=== PATIENT | female | born 1950 | race Caucasian/White ===

== ENCOUNTER → 2016-11-26 09:14 | Day surgery (SDC) | payer OTHER ==
[~2016-11-26 09:14] MED LIST: Acetaminophen TAB* 325 MG PO PRN; Buffered Lidocaine 1% SYRIN* 3 ML/SYR SYRINGE INTRADERM ONE; Cyclopentolate 1% OPTH.SOL* 2 ML BTL ONE; Flurbiprofen 0.03% OPTH.SOL* 2.5 ML BTL ONE; Lidocaine 1% MPF* 2 ML VIAL ONE; Midazolam* 1 MG/ML 2 ML VIAL (2 MG) ONE; Neomycin/Polymy/Dex OPHTH.OIN* 3.5 GM ONE; Phenylephrine 2.5% OPTH.SOL* 2 ML BTL ONE; Povidone Iodine 5% OPTH* 30 ML BTL ONE; Tetracaine 0.5% OPTH.SOL 4 ML* 1 DROP BTL ONE; acetaZOLAMIDE TAB* 250 MG ONE; fentaNYL* 50 MCG/ML 2 ML VIAL (100 MCG VIAL) ONE
[2016-11-26 11:53] VITALS: BP 139/74
--- NOTE | 2016-11-27 06:15 | OP ---
DATE OF OPERATION: 11/26/16 - [facility] DATE OF : 52 SURGEON: Jeramy Olsen MD ANESTHESIOLOGIST: Lokesh Velasco MD ANESTHESIA: Monitored anesthesia care. PRE-OP DIAGNOSIS: Cataract of the right eye. POST-OP DIAGNOSIS: Cataract of the right eye. OPERATIVE PROCEDURE: Cataract extraction of the right eye. IMPLANTS: SN60WF 22.0 diopter lens to the right eye. COMPLICATIONS: None. DESCRIPTION OF PROCEDURE: The patient was given phenylephrine 2.5% and cyclopentolate 1% eyedrops to the operative eye in the preoperative area. The patient was brought to the operating room, where a time-out was taken to identify the correct patient, site, and side of surgery. The patient's right eye was prepped and draped in the usual sterile fashion with 5% Betadine. A second time- out was taken to verify the correct patient, site, and side of surgery, and correct lens selection. A lid speculum was placed to the right eye. A 1-mm paracentesis blade was used to make a clear corneal incision in the superotemporal position. Preservative-free 1% lidocaine was injected into the anterior chamber. DuoVisc was then injected into the anterior chamber. A 2.75-mm keratome blade was used to make a triplanar incision at the inferotemporal position. A cystotome was used to initiate a capsulorrhexis, which was completed with Utrata forceps in a continuous and curvilinear manner. Hydrodissection of the lens was then performed with BSS on a cannula. The lens could be spun in the capsular bag. The phacoemulsification handpiece was then used with a abwopz-inz-vjvevyx technique to remove the nucleus in its entirety with 13.08 CDE. The I/A handpiece was then used to remove the residual cortical lens material. DuoVisc was then injected to inflate the capsular bag. The planned SN60WF 22.0 diopter lens was then injected into the capsular bag. The residual DuoVisc was then removed from the eye with the I/A handpiece. The corneal incisions were then hydrated and no leaks occurred at physiologic pressure around 20 mmHg per palpation. The lid speculum was then removed and drapes removed. Maxitrol ointment was then placed on the surface of the operative eye. An adhesive patch and shield were then placed on the operative eye. The patient was taken to the postoperative area in stable condition. [id number]/[facility] #: [id number] JL
== END | disposition home or self-care (01) ==
LOC: OREAST 09:14
PROVIDERS: ATTEND Student in an Organized Health Care Education/Training Program
DX: H25.11 Age-related nuclear cataract, right eye (principal); E11.8 Type 2 diabetes mellitus with unspecified complications; Z79.4 Long term (current) use of insulin; Z87.891 Personal history of nicotine dependence; I10 Essential (primary) hypertension
CPT/HCPCS: J2250; J3010; V2632

== ENCOUNTER 2017-01-08 10:10 | Inpatient (IN) | payer OTHER, MEDICARE ==
--- NOTE | 2016-12-31 20:19 | HP ---
HISTORY AND PHYSICAL: DATE OF ADMISSION/SURGERY: 01/08/17 ATTENDING PROVIDER: Dr. Cabello (DICTATED BY MANUEL GODOY) PROCEDURE: Right total knee arthroplasty. CHIEF COMPLAINT: Right knee pain. HISTORY OF PRESENT ILLNESS: Ms. Melchor is a 66-year-old female with complaints of right knee pain. She has failed conservative management and has elected to proceed with a right total knee arthroplasty. The surgery is scheduled for with Dr. Cabello. PAST MEDICAL HISTORY: Diabetes, hypertension, GERD, and hypercholesterolemia. PAST SURGICAL HISTORY: Total hysterectomy, right carpal tunnel release, right total hip arthroplasty and cataract removal. MEDICATIONS: 1. Lantus 20 units in the a.m. and p.m. 2. Amlodipine 2.5 mg in the a.m. 3. Glimepiride 1 mg 3 times a day. 4. Lisinopril/hydrochlorothiazide 20/12.5 mg once a day. 5. Metformin 500 mg once a day. 6. Omeprazole 40 mg once a day. 7. Simvastatin 20 mg once a day. 8. Advil as needed. ALLERGIES: DOXYCYCLINE, LEVAQUIN, CODEINE and INVOKANA. FAMILY HISTORY: Diabetes, heart disease and cancer. SOCIAL HISTORY: She is a 66-year-old female. She lives with her daughter. She denies use of illicit drugs. REVIEW OF SYSTEMS: A complete 14-point review of systems was reviewed with the patient. Positive for diabetes. Negative for anesthesia problems, history of DVT, hepatitis C, HIV or bleeding disorder. PHYSICAL EXAMINATION GENERAL: She is well developed, well nourished. She is in no acute distress. VITAL SIGNS: She stands 5 feet 6 inches tall, weighs 213 pounds. Blood pressure 135/85, heart rate is 91. HEENT: Normocephalic, atraumatic. NECK: Supple. No palpable lymph nodes. Trachea is midline. PULMONARY: Lungs clear to auscultation bilaterally. No wheezes, rhonchi or rales. CARDIAC: Regular rate and rhythm. Strong S1, S2. No murmurs, gallops or rubs. ABDOMEN: Soft, nontender, nondistended. MUSCULOSKELETAL: Right lower extremity skin is intact. There is a moderate joint effusion. She has tenderness over the medial and lateral joint line on 0 to 125 degrees flexion. Her lower extremities muscle group strengths are intact at 5/5. She has intact sensation. 2+ dorsalis pedis pulses. NEUROLOGIC: She is alert and oriented x3. Cranial nerves II through XII are intact. ASSESSMENT/PLAN: Ms. Melchor is a 66-year-old female with complaints of right knee pain. She has failed conservative management and has elected to proceed with a right total knee arthroplasty which is scheduled for 01/08/[address] Cabello discussed the risks and benefits at today's visit and all her questions were answered. Percocet, Zofran and Colace are sent to her pharmacy today for postoperative pain control. Colace for constipation and Zofran for nausea. She did discuss DVT prophylaxis with Dr. Cabello and they agreed aspirin 325 mg twice a day was appropriate. She will follow up with Dr. Cabello 10 to 14 days after the surgery. MANUEL GODOY [id number]/[facility] #: [id number] [facility]aman
[~2017-01-08 10:10] MED LIST changes: -Acetaminophen TAB* 325 MG PO PRN; +Buffered Lidocaine 1% SYR 3ML* 3 ML/SYR SYRINGE INTRADERM ONE; -Buffered Lidocaine 1% SYRIN* 3 ML/SYR SYRINGE INTRADERM ONE; -Cyclopentolate 1% OPTH.SOL* 2 ML BTL ONE; +DiMENhydriNATE IV* 50 MG/ML VIAL IV PUSH PRN; +DiMENhydriNATE IV* 50 MG/ML VIAL ONE; +Famotidine IV* 10 MG/ML 2 ML (20 mg) IV ONE; +Famotidine IV* 10 MG/ML 2 ML (20 mg) ONE; -Flurbiprofen 0.03% OPTH.SOL* 2.5 ML BTL ONE; +HYDROmorphone* 1 MG/ML 1 ML SYR ONE; -Lidocaine 1% MPF* 2 ML VIAL ONE; +Metoclopramide IV* 5 MG/ML 2 ML VIAL IV SLOW PU ONE; +Metoclopramide IV* 5 MG/ML 2 ML VIAL ONE; -Midazolam* 1 MG/ML 2 ML VIAL (2 MG) ONE; +Midazolam* 1 MG/ML 5 ML VIAL (5 MG) ONE; +Morphine PF AMP (0.5MG/ML)* 5 MG/10 ML AMP ONE; -Neomycin/Polymy/Dex OPHTH.OIN* 3.5 GM ONE; +Ondansetron INJ* 2 MG/ML VIAL IV PRN; +PROCHLORPERAZINE INJ 5 MG/ML 2 ML VIAL IV PRN; -Phenylephrine 2.5% OPTH.SOL* 2 ML BTL ONE; -Povidone Iodine 5% OPTH* 30 ML BTL ONE; -Tetracaine 0.5% OPTH.SOL 4 ML* 1 DROP BTL ONE; -acetaZOLAMIDE TAB* 250 MG ONE; +ceFAZolin 2 GM PREMIX(*) 2 GM/50 ML BAG IVPB ONE; +fentaNYL* 50 MCG/ML 2 ML VIAL (100 MCG VIAL) IV PRN; -fentaNYL* 50 MCG/ML 2 ML VIAL (100 MCG VIAL) ONE; +fentaNYL* 50 MCG/ML 5 ML VIAL (250 MCG VIAL) ONE
[2017-01-08] MEDS ORDERED: Bupivacaine 0.5% SDV PF* 30 ML VIAL ONE (11:02)
[2017-01-08] MEDS ORDERED: Propofol* 10 MG/ML 20 ML BTL IV PUSH ONE (11:02)
[2017-01-08] MEDS ORDERED: Dexmedetomidine* 200 MCG/2 ML 2 ML VIAL ONE (11:02)
[2017-01-08] MEDS ORDERED: Meperidine SYRINGE* 50 MG/ML ONE ×2 (11:47→15:10)
[2017-01-08] MEDS ORDERED: HYDROmorphone* 1 MG/ML 1 ML SYR ONE ×3 (11:48→13:48)
[2017-01-08] MEDS ORDERED: fentaNYL* 50 MCG/ML 5 ML VIAL (250 MCG VIAL) ONE (13:40)
[2017-01-08] MEDS ORDERED: Acetaminophen TAB* 325 MG PO PRN (14:03)
[2017-01-08] MEDS ORDERED: Bisacodyl SUPP* 10 MG SUPP PR PRN (14:03)
[2017-01-08] MEDS ORDERED: oxyCODONE/Acetamin 5/325 MG* TAB PO PRN (14:03)
[2017-01-08] MEDS ORDERED: diPHENhydraMINE PO* 25 MG PO PRN (14:03)
[2017-01-08] MEDS ORDERED: Ondansetron TAB* 4 MG PO PRN (14:03)
[2017-01-08] MEDS ORDERED: Polyethylene Glycol 3350* 17 GM PACKET PO PRN (14:03)
[2017-01-08] MEDS ORDERED: diPHENhydraMINE IV* 50 MG/ML 1 ml VIAL (BENADRYL) IV PRN ×2 (14:03→15:23)
[2017-01-08] MEDS ORDERED: Ondansetron INJ* 2 MG/ML VIAL IV PRN ×2 (14:03→15:23)
[2017-01-08] MEDS ORDERED: GLIMEPIRIDE 1 MG PO SCH (14:15)
[2017-01-08] MEDS ORDERED: Naloxone* 0.4 MG/ML 1 ML VIAL IV PRN (15:23)
[2017-01-08] MEDS ORDERED: Nalbuphine* 20 MG/ML 1 ML VIAL IV PRN (15:23)
[2017-01-08] MEDS ORDERED: DiMENhydriNATE IV* 50 MG/ML VIAL IV PUSH PRN (15:23)
[2017-01-08] MEDS ORDERED: Dextrose 50% Syringe 50 ML* 25 GM/50 ML SYRINGE IV PUSH PRN (16:17)
[2017-01-08] MEDS: Insulin LISPRO* 1 UNITS UNIT SUBCUT SCH (18:08)
--- NOTE | 2017-01-08 18:15 | RAD ---
Indication: Right Bipolar knee replacement. 2 views of the right knee demonstrates bipolar knee replacement in satisfactory position. Drainage tube is in place. IMPRESSION: Right knee replacement in satisfactory position.
--- NOTE | 2017-01-08 19:04 | CONS ---
CONSULTATION REPORT: DATE OF CONSULT: 01/08/17 PRIMARY CARE PROVIDER: Dr. Deangelo Sethi ATTENDING PHYSICIAN: Tim Sotelo MD (dictated by Aubree Robert NP). PHYSICIAN REQUESTING CONSULTATION: Aby Cabello MD REASON FOR CONSULTATION: Co-medical management in a patient with a history of diabetes mellitus and hypertension. HISTORY OF PRESENT ILLNESS: Ms. Melchor is a 66-year-old female with past medical history significant for diabetes mellitus, hypertension, hypercholesterolemia, who presented to the hospital for an elective right total hip arthroplasty with Dr. Cabello, today. Postoperatively, the patient is doing well, states that her pain is controlled. The patient states that leading up to the surgery, she was in a good state of health. She denies any recent fever , chills, shortness of breath, chest pain or urinary symptoms. Hospitalists were asked to assist with management of this patient during the postoperative period. PAST MEDICAL HISTORY: 1. Diabetes mellitus. 2. Hypertension. 3. GERD. 4. Hypercholesterolemia. 5. Allergic rhinitis. 6. Obesity. 7. Carpal tunnel syndrome. PAST SURGICAL HISTORY: 1. Status post total hysterectomy. 2. Status post right carpal tunnel release. 3. Status post right total hip arthroplasty in June 2016. 4. Status post right cataract extraction. HOME MEDICATIONS: Include: 1. Lantus 20 units subcutaneously twice daily. 2. Amlodipine 2.5 mg oral daily in the morning. 3. Glimepiride 2 mg 1 tablet oral in the morning and 2 tablets oral in the evening. 4. Lisinopril/hydrochlorothiazide 20/12.5 one tablet oral daily. 5. Metformin 500 mg oral daily at bedtime. 6. Omeprazole 40 mg oral daily. 7. Simvastatin 20 mg oral daily. 8. Vitamin C 250 mg oral daily. 9. Vitamin D3 1000 units daily. 10. Multivitamin 1 tablet oral daily. 11. Ibuprofen 800 mg oral twice daily as needed for pain. ALLERGIES: 1. DOXYCYCLINE. 2. LEVAQUIN. 3. CODEINE. 4. INVOKANA. 5. WARFARIN. FAMILY HISTORY: The patient's maternal grandmother had a history of diabetes mellitus. The patient's father, maternal uncle and maternal grandfather had a history of heart disease. The patient's mother had a history of metastatic cancer with unknown primary. SOCIAL HISTORY: The patient is a former smoker. She quit smoking in 2011. The patient smoked approximately 1-1/2 packs a day for 43 years. The patient denies alcohol or recreational drug use. The patient's daughter, Anne Marie Dunlap will be her surrogate decision maker in the event that she is unable to make decisions for herself. In the event that her daughter Anne Marie is unable to make decisions for her, her son Brandon Melchor would be her surrogate decision maker. REVIEW OF SYSTEMS: I performed a 14-point review of systems. All the pertinent positives and negatives are mentioned in the history of present illness. The remaining review of systems are negative. PHYSICAL EXAM: Vital Signs: Temperature 97.3, heart rate 88, respiratory rate 16, O2 sat 96% on 4 L, blood pressure 116/67. Appearance: The patient is alert and appears to be in no acute distress. HEENT: Normocephalic, atraumatic. Pupils are equal and reactive to light. Extraocular movements are intact. Cardiovascular: Regular rate and rhythm. S1, S2 are crisp. There are no murmurs, rubs or gallops heard. Extremities: There is no lower extremity edema. DP and PT pulses are 2+ and symmetric. Respiratory: There is no accessory muscle use and the lungs are clear to auscultation bilateral. Abdomen : Soft, nontender, and nondistended. There are bowel sounds present x4. Musculoskeletal: There is no clubbing or cyanosis noted. The patient has a decreased strength in bilateral lower extremities with slight dorsiflexion on the left due to her spinal. Skin: There is a dressing on the patient's right knee that is clean, dry and intact. Neurological: Cranial nerves II through XII are grossly intact. The patient has limited movement in her bilateral lower extremities due to her spinal anesthesia. Psychological: The patient is calm and cooperative. DIAGNOSTIC STUDIES/LAB DATA: Preoperative laboratory data from 12/28/16. Sodium 137, potassium 4.4, chloride 103, CO2 of 24, BUN 28, creatinine 0.99, glucose 175. White blood cell count 9.1, hemoglobin 12.6, hematocrit 37, and platelet count 262. IMPRESSION: Ms. Melchor is a 66-year-old female with past medical history significant for diabetes mellitus, hypertension, gastroesophageal reflux disease , and hypercholesterolemia, and arthritis who presented to the hospital for an elective right total hip arthroplasty with Dr. Cabello today. Hospitalists were asked to assist with co-management of this patient during her hospitalization. ASSESSMENT/PLAN: 1. Status post right total knee arthroplasty. Management per Orthopedic Surgery. The patient will be placed on a pain medication regimen and bowel regimen. She will have her hemoglobin and hematocrit trended. She will have her Anthony removed on postop day #1. She will have physical therapy and occupational therapy. 2. Hypertension. In the perioperative period, we will hold the patient's lisinopril and hydrochlorothiazide and restart accordingly. We will continue her amlodipine. 3. Diabetes mellitus. The patient will be continued on her home Lantus. We will hold her glimepiride and place her on a lispro sliding scale coverage with glucose checks a.c. and h.s. We will also hold the patient's metformin. 4. Hypercholesterolemia. The patient will be continued on her home simvastatin. 5. History of GERD. The patient will be continued on her omeprazole. 6. Fluid, electrolytes and nutrition. The patient will be on a consistent carbohydrate diet. 7. DVT prophylaxis. The patient will be on full dose 325 mg aspirin with Lovenox per Orthopedic Surgery. 8. Code status. Full code. 9. Disposition. Inpatient. Disposition per Orthopedic Surgery. TIME SPENT: The time for this consultation was 60 minutes, 30 minutes was spent with the patient discussing medications, past medical history and events leading up to her arrival today and performing a physical examination. Reviewed by CAN BARNETT 01/10/17 [id number] CC: Dr. Deangelo Sethi; Dr. Cabello* [id number]/[facility] #: [id number] [facility]aman
[2017-01-08] MEDS: Insulin GLARGINE(*) 1 UNITS UNIT SUBCUT SCH (20:44)
[2017-01-08] MEDS: ceFAZolin 1 GM in Dextrose (*) 1 GM/50 ML BAG IVPB SCH (20:46)
[2017-01-08] MEDS: Docusate CAP* 100 MG PO SCH (20:53)
[2017-01-08] MEDS: Magnesium Hydroxide LIQ* 30 ML UDC PO SCH (20:53)
[2017-01-08] MEDS: Atorvastatin* 10 MG TAB PO SCH (20:54)
[2017-01-08] MEDS ORDERED: metFORMIN* 500 MG TAB PO SCH (21:00)
[2017-01-08] MEDS: PROCHLORPERAZINE INJ 5 MG/ML 2 ML VIAL IV PRN (21:02)
[2017-01-08] MEDS: oxyCODONE/Acetamin 5/325 MG* TAB PO PRN (21:04)
[2017-01-09] MEDS: oxyCODONE/Acetamin 5/325 MG* TAB PO PRN ×5 (00:14→18:00)
[2017-01-09] MEDS: ceFAZolin 1 GM in Dextrose (*) 1 GM/50 ML BAG IVPB SCH ×2 (03:51→12:14)
[2017-01-09] MEDS: PROCHLORPERAZINE INJ 5 MG/ML 2 ML VIAL IV PRN (04:03)
[2017-01-09 06:42] LABS: Hematocrit 30 % (35-47)
[2017-01-09 06:54] LABS: BUN/Creatinine Ratio 17.7 (8-20); Calcium 8.5 mg/dL (8.6-10.3); EGFR Non-African American 58.3 (>60); Potassium 4.4 mmol/L (3.5-5.0)
--- NOTE | 2017-01-09 07:07 | OP ---
OPERATIVE REPORT: DATE OF OPERATION: 01/08/17 DATE OF : 52 SURGEON: Aby Cabello MD ROD PULLER AND COILER: MANUEL Mulligan Ms. Taveras was used throughout the procedure and all portions including preparation of the leg, wo und retraction, manipulation of the knee, and wound closure. ANESTHESIOLOGIST: Dr. Mclaughlin. ANESTHESIA: Spinal with adductor nerve block. PRE-OP DIAGNOSIS: Severe end-stage degenerative osteoarthritis of the right knee joint with valgus deformity. POST-OP DIAGNOSIS: Severe end-stage degenerative osteoarthritis of the right knee joint with valgus deformity. OPERATIVE PROCEDURE: Right total knee arthroplasty. INDICATIONS: Ms. Melchor is a 66-year-old female with years of increasingly severe right knee pain an d deformity. She failed conservative treatment with anti- inflammatories, pain medications, intraar ticular injections, physical therapy, and brace wear. Radiographs showed severe end-stage arthritis of the knee joint with lateral laiq-gv-bzmz contact. She was developing an increasingly severe alison lisa deformity at the knee. She elected to undergo right total knee arthroplasty due to continued pa in and decreased quality of life. Informed consent was obtained and the patient understood the risk s of the procedure included, but were not limited to, bleeding, infection, damage to nearby structur es, continued pain, need for further surgery, intraoperative fracture, nerve palsy, hardware failure and loosening, stiffness, loss of motion, stroke, heart attack, blood clot, and . She wished t o proceed. HARDWARE USED: This is cemented [employer] total knee hardware. Two packages of Simplex bone cement. For the femur, a size 5 right narrow Oxinium femoral component. For the tibia, a size 4 r ight tibial baseplate. For the insert, an 11-mm posterior stabilized articular insert, and for the patella, a 32- mm 7.5 thickness, 3-peg all poly patella. COMPLICATIONS: None. TOURNIQUET TIME: 46 minutes. SPECIMEN: Bone and cartilage from the right knee joint sent to Pathology. INTRAOPERATIVE FINDINGS: Intraoperatively, the patient was noted have a 20-degree valgus deformity preoperatively. This was corrected to 5 degrees of anatomic valgus by the end of the case. A 10-de gree flexion contracture was noted. By the end of the case, the patient had full extension to 130 d egrees of flexion. DESCRIPTION OF PROCEDURE: Ms. Melchor was identified in the pre-anesthesia unit. Her right lower extr emity was marked as the correct operative side. Informed consent was signed and placed in the chart . The patient was taken to the operating room and placed under spinal anesthesia with an adductor n erve block. Anthony catheter was placed. Tourniquet was placed on the right thigh. Right lower extr emity was prepped and draped in the usual sterile fashion. Preop time-out was made to correctly romeo ntify the patient's side and site. Appropriate perioperative antibiotics were given within 1 hour o f incision. Tourniquet was inflated and total tourniquet time for this procedure was 46 minutes. A 14-cm midlin e incision was made with a 15 blade and carried down to the extensor mechanism. A new 10 blade was used to make a standard medial parapatellar arthrotomy. The patella was subluxed laterally. Electr ocautery was used to subperiosteally elevate soft tissue off the superomedial tibia to the mid sagit wolf plane. The knee was flexed up. The ACL and the anterior horn of the lateral meniscus were esther ply released. A drill was used to enter the distal femur. Significant lateral femoral condylar hypo plasia was noted. A drill was used to enter the distal femur and intramedullary distal femoral cutt ing guide was placed on the distal femur. The lateral femoral condylar hypoplasia was noted and acc ounted for. Oscillating saw was used to make the distal femoral cut. External rotation guide was c arefully pinned on the distal femur and the distal femur was sized to a size 5. Size 5 multi-cuttin g jig was pinned on the distal femur. Oscillating saw was used to make the appropriate chamfer cuts. Next, the PCL was completely released. The tibia was subluxed anteriorly. Extramedullary tibial cut ting guide was pinned on the proximal tibia. Oscillating saw was used to make the proximal tibial c ut. The bone was carefully removed. The knee was brought out into full extension. There was later al tightness at medial laxity. This was addressed with conservative pie-crusting using a 15-blade l aterally. Medial and lateral ligamentous balancing was improved. Any osteophytes were carefully re moved from the lateral femoral condyle and lateral tibial plateau. Medial and lateral ligamentous ba lancing was much improved. Flexion and extension gap balancing was appropriate. The knee was flexed up. [employer]ina consulting utility forester was placed both medially and laterally. Any remaining menis cus was carefully removed using electrocautery. A curved osteotome was used to remove any posterior osteophytes. Tibial tray and drop mildred were placed to once again confirm a satisfactory proximal tibial cut. This was confirmed. A size 5 right narrow femoral trial was impacted on to the distal femur and had exc ellent fit. The box for the posterior stabilized implant was prepared using a reamer and box cut os teotome. Size 4 tibial tray trial with an 11-mm insert trial was placed and the knee was taken thro [facility] a range of motion. The knee had full extension to 125 degrees of flexion with good patellofemor al tracking. The patella was everted. The patella was quite thin and there was complete loss of cartilage. 7 mm of patellar bone and cartilage was carefully removed with an oscillating saw. The patella was size d to a size 32. Drill holes were drilled to the size 32 guide. A 7.5 thickness patella was chosen and the trial was placed. The knee was taken through a range of motion and there was satisfactory pa tellofemoral tracking. All trials were carefully removed. The tibia was subluxed anteriorly and sized to a size 4. Proxim al tibia was prepared using a size 4 keel punch. All bony cut surfaces were copiously irrigated wit h sterile saline and dried. Final implants were cemented into place starting with the tibia followe d by the femur and lastly patella. An 11-mm insert trial was placed while the knee was brought out into full extension. Tourniquet was turned down at 46 minutes. Once the cement was fully cured, th e knee was copiously irrigated with sterile saline. Any excess cement was carefully removed from th e capsule and around the hardware. Insert trial was removed. Electrocautery was used to obtain met iculous hemostasis. The final insert chosen was an 11-mm posterior stabilized articular insert, size 3- 4. This was locked into position on the tibial tray. Stability of the insert was checked and reche cked and noted to be stable. The knee was copiously irrigated with sterile saline. The extensor mechanism was reapproximated usi ng interrupted #1 Vicryl's over a medium Hemovac drain. The rest of the incision was closed in a la yered fashion using 0 and 2-0 Vicryl's. Skin was closed using running 3-0 nylon suture. Sterile Xe roform, 4x4, and Webril were used to cover the incision. Adrian wrap and cold pack were placed over th is. The patient's anesthesia was reversed without difficulty. The patient was taken to the PACU in stab le condition. Intended weightbearing will be weightbearing as tolerated. Intended DVT prophylaxis will be Lovenox followed by aspirin. [id number]/[facility] #: [id number]
[2017-01-09] MEDS: Insulin GLARGINE(*) 1 UNITS UNIT SUBCUT SCH ×2 (07:58→20:58)
[2017-01-09] MEDS: Insulin LISPRO* 1 UNITS UNIT SUBCUT SCH ×3 (07:59→18:01)
[2017-01-09] MEDS: Omeprazole CAP* 20 MG PO SCH (08:03)
[2017-01-09] MEDS: Docusate CAP* 100 MG PO SCH ×2 (09:00→20:39)
[2017-01-09] MEDS ORDERED: Lisinopril/HCTZ 20/12.5(NF) TAB PO SCH (09:00)
[2017-01-09] MEDS: Cholecalciferol TAB* 1000 UNITS PO SCH (09:00)
[2017-01-09] MEDS ORDERED: Aspirin TAB* 325 MG PO SCH (09:00)
[2017-01-09] MEDS: amLODIPine TAB* 5 MG PO SCH (09:01)
[2017-01-09] MEDS: Magnesium Hydroxide LIQ* 30 ML UDC PO SCH ×2 (09:02→20:39)
[2017-01-09] MEDS: Ascorbic Acid TAB* 500 MG PO SCH (09:02)
--- NOTE | 2017-01-09 09:08 | PN ---
Progress Note - Progress Note SOAP: Subjective: []Patient seen at bedside. Vomited last night but feeling better this am. Denies SOB, CP or dizziness. Pain well managed right knee. Objective: [] Vital Signs Temp 98.3 F 01/09/17 07:27 Pulse 100 01/09/17 07:27 Resp 16 01/09/17 08:03 BP 125/68 01/09/17 07:27 Pulse Ox 97 01/09/17 07:46 Intake & Output 01/08/17 01/09/17 01/09/17 18:59 06:59 18:59 Intake Total 2400 1424 225 Output Total 550 1400 Balance 1850 24 225 Weight 213 lb 3.2 oz Intake: IV Fluids 1900 979 LR 1900 979 IVPB 55 Cefazolin 55 Oral 500 390 225 Output: Anthony 300 900 Emesis 500 Estimated Blood Loss 250 Laboratory Results - last 24 hr 01/08/17 01/08/17 01/08/17 10:26 15:43 17:48 Hgb Hct Sodium Potassium Chloride Carbon Dioxide Anion Gap BUN Creatinine Est GFR ( Amer) Est GFR (Non-Af Amer) BUN/Creatinine Ratio Glucose POC Glucose (mg/dL) 218 H 162 H 148 H Calcium 01/08/17 01/09/17 01/09/17 20:44 06:29 06:29 Hgb 10.0 L Hct 30 L Sodium 131 L Potassium 4.4 Chloride 99 L Carbon Dioxide 25 Anion Gap 7 BUN 17 Creatinine 0.96 H Est GFR ( Amer) 75.0 Est GFR (Non-Af Amer) 58.3 BUN/Creatinine Ratio 17.7 Glucose 244 H POC Glucose (mg/dL) 243 H Calcium 8.5 L 01/09/17 07:23 Hgb Hct Sodium Potassium Chloride Carbon Dioxide Anion Gap BUN Creatinine Est GFR ( Amer) Est GFR (Non-Af Amer) BUN/Creatinine Ratio Glucose POC Glucose (mg/dL) 235 H Calcium Right knee CHARLES clean dry and intact Hemovac drain discontinued without difficulty, tip intact calf non tender and soft +DF/PF right ankle sensation intact Assessment: []s/p right total knee arthroplasty POD #1 Plan: []PT/OT WBAT ASA qd / Lovenox Home Saturday
--- NOTE | 2017-01-09 10:10 | PN ---
Subjective Date of Service: 01/09/17 Interval History: Patient seen this morning. Says she is feeling well overall. Knee is "achy" but pain medications are working. No chest pain, SOB, fever, chills. Anthony just removed, no UOP yet, no BM yet. Family History: Unchanged from Admission Social History: Unchanged from Admission Past Medical History: Unchanged from Admission Objective Active Medications: Acetaminophen (Tylenol Tab*) 650 mg PO Q4H PRN Amlodipine Besylate (Norvasc Tab*) 2.5 mg PO QAM [facility] Ascorbic Acid (Vitamin C Tab*) 1,000 mg PO DAILY [facility] Aspirin (Aspirin Tab*) 325 mg PO DAILY [facility] Atorvastatin Calcium (Lipitor*) 10 mg PO BEDTIME [facility] Bisacodyl (Dulcolax Supp*) 10 mg NM DAILY PRN Cholecalciferol (Vitamin D Tab*) 2,000 units PO DAILY [facility] Dextrose (D50w Syringe 50 Ml*) 12.5 gm IV PUSH .FOR FS < 60 - SS PRN Diphenhydramine HCl (Benadryl Iv*) 12.5 mg IV Q6H PRN Diphenhydramine HCl (Benadryl Po*) 25 mg PO Q6H PRN Docusate Sodium (Colace Cap*) 100 mg PO BID [facility] Enoxaparin Sodium (Lovenox(*)) 30 mg SUBCUT Q24H [facility] Lactated Ringer's (Lactated Ringers 1000 Ml Bag*) 1,000 mls @ 100 mls/hr IV PER RATE [facility] Cefazolin Sodium/Dextrose (Kefzol 1 Gm In Dextrose Duplex (*)) 1 gm in 50 mls @ 200 mls/hr IVPB Q8H [facility] Insulin Glargine (Lantus(*)) 20 units SUBCUT BID [facility] Insulin Human Lispro (Humalog*) 0 - 10 units SUBCUT AC [facility] Lactulose (Lactulose*) 30 ml PO Q6H PRN Magnesium Hydroxide (Milk Of Magnesia Liq*) 30 ml PO BID [facility] Morphine Sulfate (Morphine Inj (Syringe)*) 5 mg IV Q2H PRN Omeprazole (Prilosec Cap*) 40 mg PO QAM [facility] Ondansetron HCl (Zofran Inj*) 4 mg IV Q6H PRN Ondansetron HCl (Zofran Tab*) 4 mg PO Q6H PRN Oxycodone HCl (Roxycodone Tab*) 10 mg PO Q4H PRN Oxycodone/Acetaminophen (Percocet 5/325 Tab*) 1 tab PO Q3H PRN Oxycodone/Acetaminophen (Percocet 5/325 Tab*) 2 tab PO Q3H PRN Polyethylene Glycol/Electrolytes (Miralax*) 17 gm PO DAILY PRN Vital Signs 01/08/17 01/08/17 01/08/17 10:21 15:02 15:05 Temperature 97.7 F 97.5 F Pulse Rate 89 87 87 Respiratory 16 16 16 Rate Blood Pressure 134/89 110/69 109/70 (mmHg) O2 Sat by Pulse 95 94 94 Oximetry 01/08/17 01/08/17 01/08/17 16:30 16:45 17:00 Temperature Pulse Rate 90 85 87 Respiratory 16 18 16 Rate Blood Pressure 109/78 109/78 110/71 (mmHg) O2 Sat by Pulse 96 96 95 Oximetry 01/09/17 01/09/17 01/09/17 07:27 07:46 08:00 Temperature 98.3 F Pulse Rate 100 Respiratory 14 14 18 Rate Blood Pressure 125/68 (mmHg) O2 Sat by Pulse 97 97 Oximetry Oxygen Devices in Use Now: None Appearance: Middle-aged, F, laying in chair in NAD Eyes: No Scleral Icterus Ears/Nose/Mouth/Throat: Mucous Membranes Moist Neck: NL Appearance and Movements; NL JVP Respiratory: Symmetrical Chest Expansion and Respiratory Effort, Clear to Auscultation Cardiovascular: NL Sounds; No Murmurs; No JVD, RRR Abdominal: NL Sounds; No Tenderness; No Distention Lymphatic: No Cervical Adenopathy Extremities: No Edema, - - R knee with cryo unit in place Skin: No Rash or Ulcers Neurological: Alert and Oriented x 3 Result Diagrams: 01/09/17 06:29 01/09/17 06:29 Assess/Plan/Problems-Billing Assessment: 66 yo F with hx of HTN, HLD, DM, GERD and obesity s/p R TKA - Patient Problems (1) S/P total knee arthroplasty Current Visit: Yes Comment: Right. Management as per Orthopedics. On ASA 325 mg daily and Lovenox. Anthony removed. (2) HTN (hypertension) Current Visit: Yes Comment: BPs stable. Continue Amlodipine. Holding Lisinopril and HCTZ (3) HLD (hyperlipidemia) Current Visit: Yes Comment: Continue statin (4) Diabetes Current Visit: Yes Comment: BGs slightly elevated. Continue Lantus 20 units BID, increase HISS. Restart home Metformin. (5) GERD (gastroesophageal reflux disease) Current Visit: Yes Comment: Continue PPI (6) DVT prophylaxis Current Visit: Yes Comment: Lovenox/ASA
[2017-01-09] MEDS: Enoxaparin(*) 30 MG/0.3 ML SYR SUBCUT SCH (13:24)
[2017-01-09] MEDS: oxyCODONE TAB* 5 MG TAB PO PRN ×2 (14:31→23:30)
[2017-01-09] MEDS: Atorvastatin* 10 MG TAB PO SCH (20:39)
[2017-01-09] MEDS: metFORMIN* 500 MG TAB PO SCH (20:39)
[2017-01-09] MEDS: Morphine INJ* 10 MG/ML 1 ML SYRINGE IV PRN (22:21)
[2017-01-10] MEDS: oxyCODONE/Acetamin 5/325 MG* TAB PO PRN ×5 (03:14→22:22)
[2017-01-10] MEDS: Morphine INJ* 10 MG/ML 1 ML SYRINGE IV PRN (03:31)
[2017-01-10 06:25] LABS: Hematocrit 26 % (35-47); Hemoglobin 8.8 g/dl (12.0-16.0)
[2017-01-10] MEDS: Omeprazole CAP* 20 MG PO SCH (07:25)
[2017-01-10] MEDS ORDERED: Insulin LISPRO* 1 UNITS UNIT SUBCUT SCH (07:30)
--- NOTE | 2017-01-10 07:41 | PN ---
Progress Note - Progress Note SOAP: Subjective: Pt. c/o uncontrolled pain overnight, better control this AM. Objective: RLE - dressing changed, inc c/d/ i. min swelling. distally nvi. Vital Signs: Temp Pulse Resp BP Pulse Ox 97.8 F 108 18 134/69 95 01/10/17 03:24 01/10/17 03:24 01/10/17 07:26 01/10/17 03:24 01/10/17 03:24 Laboratory Results - last 24 hr 01/09/17 01/09/17 01/09/17 07:23 12:14 16:54 Hgb Hct POC Glucose (mg/dL) 235 H 260 H 341 H 01/09/17 01/10/17 01/10/17 20:31 05:47 07:18 Hgb 8.8 L Hct 26 L POC Glucose (mg/dL) 283 H 249 H Assessment: [66 yo F pod 2 s/ p RTKA Plan: wbat rle pt.ot tachycardia last 24 hours, possible pain and acute blood loss plan d/c to home tomorrow AM
[2017-01-10] MEDS: Insulin GLARGINE(*) 1 UNITS UNIT SUBCUT SCH ×2 (08:00→22:23)
[2017-01-10] MEDS: amLODIPine TAB* 5 MG PO SCH (08:01)
[2017-01-10] MEDS: Docusate CAP* 100 MG PO SCH ×2 (08:01→22:22)
[2017-01-10] MEDS: Cholecalciferol TAB* 1000 UNITS PO SCH (08:02)
[2017-01-10] MEDS: Ascorbic Acid TAB* 500 MG PO SCH (08:02)
[2017-01-10] MEDS: Magnesium Hydroxide LIQ* 30 ML UDC PO SCH ×2 (08:03→22:23)
--- NOTE | 2017-01-10 09:02 | PN ---
Subjective Date of Service: 01/10/17 Interval History: Patient seen this morning after returning from the bathroom. Reports pain has increased since after PT yesterday afternoon. Had a difficult night, pain medication seems to help. No chest pain or SOB. Urinating, no BM yet. Good PO intake. Family History: Unchanged from Admission Social History: Unchanged from Admission Past Medical History: Unchanged from Admission Objective Active Medications: Acetaminophen (Tylenol Tab*) 650 mg PO Q4H PRN PRN Reason: mild pain or fever Amlodipine Besylate (Norvasc Tab*) 2.5 mg PO QAM [facility] Last Admin: 01/10/17 08:01 Dose: 2.5 mg Ascorbic Acid (Vitamin C Tab*) 1,000 mg PO DAILY [facility] Last Admin: 01/10/17 08:02 Dose: 1,000 mg Atorvastatin Calcium (Lipitor*) 10 mg PO BEDTIME [facility] Last Admin: 01/09/17 20:39 Dose: 10 mg Bisacodyl (Dulcolax Supp*) 10 mg [place] DAILY PRN PRN Reason: constipation Cholecalciferol (Vitamin D Tab*) 2,000 units PO DAILY [facility] Last Admin: 01/10/17 08:02 Dose: 2,000 units Dextrose (D50w Syringe 50 Ml*) 12.5 gm IV PUSH .FOR FS < 60 - SS PRN PRN Reason: FS < 60 Diphenhydramine HCl (Benadryl Iv*) 12.5 mg IV Q6H PRN PRN Reason: PRURITIS Diphenhydramine HCl (Benadryl Po*) 25 mg PO Q6H PRN PRN Reason: INSOMNIA Docusate Sodium (Colace Cap*) 100 mg PO BID [facility] Last Admin: 01/10/17 08:01 Dose: 100 mg Enoxaparin Sodium (Lovenox(*)) 30 mg SUBCUT Q24H [facility] Last Admin: 01/09/17 13:24 Dose: 30 mg Glyburide (Diabeta Tab*) 5 mg PO DAILY [facility] Lactated Ringer's (Lactated Ringers 1000 Ml Bag*) 1,000 mls @ 100 mls/hr IV PER RATE [facility] Last Admin: 01/09/17 03:53 Dose: 100 mls/hr Insulin Glargine (Lantus(*)) 20 units SUBCUT BID [facility] Last Admin: 01/10/17 08:00 Dose: 20 units Insulin Human Lispro (Humalog*) 0 units SUBCUT [facility] PRN Reason: Protocol Last Admin: 01/10/17 07:59 Dose: 6 units Lactulose (Lactulose*) 30 ml PO Q6H PRN PRN Reason: constipation Magnesium Hydroxide (Milk Of Magnesia Liq*) 30 ml PO BID [facility] Last Admin: 01/10/17 08:03 Dose: 30 ml Metformin HCl (Glucophage*) 500 mg PO BEDTIME [facility] Last Admin: 01/09/17 20:39 Dose: 500 mg Morphine Sulfate (Morphine Inj (Syringe)*) 5 mg IV Q2H PRN PRN Reason: PAIN Last Admin: 01/10/17 03:31 Dose: 5 mg Omeprazole (Prilosec Cap*) 40 mg PO QAM [facility] Last Admin: 01/10/17 07:25 Dose: 40 mg Ondansetron HCl (Zofran Inj*) 4 mg IV Q6H PRN PRN Reason: nausea Last Admin: 01/09/17 22:21 Dose: 4 mg Ondansetron HCl (Zofran Tab*) 4 mg PO Q6H PRN PRN Reason: NAUSEA Oxycodone HCl (Roxycodone Tab*) 10 mg PO Q4H PRN PRN Reason: breakthrough pain Last Admin: 01/09/17 23:30 Dose: 10 mg Oxycodone/Acetaminophen (Percocet 5/325 Tab*) 1 tab PO Q3H PRN PRN Reason: PAIN - MODERATE Oxycodone/Acetaminophen (Percocet 5/325 Tab*) 2 tab PO Q3H PRN PRN Reason: PAIN - MODERATE Last Admin: 01/10/17 07:26 Dose: 2 tab Polyethylene Glycol/Electrolytes (Miralax*) 17 gm PO DAILY PRN PRN Reason: Constipation Vital Signs 01/09/17 01/09/17 01/09/17 10:03 11:20 13:00 Temperature 98.6 F Pulse Rate 92 Respiratory 18 15 18 Rate Blood Pressure 113/63 (mmHg) O2 Sat by Pulse 97 Oximetry 01/10/17 01/10/17 01/10/17 05:14 07:26 07:29 Temperature 98.3 F Pulse Rate 94 Respiratory 16 18 16 Rate Blood Pressure 148/80 (mmHg) O2 Sat by Pulse 92 Oximetry Oxygen Devices in Use Now: None Appearance: Middle-aged, F, laying in chair in NAD Eyes: No Scleral Icterus Ears/Nose/Mouth/Throat: Mucous Membranes Moist Neck: NL Appearance and Movements; NL JVP Respiratory: Symmetrical Chest Expansion and Respiratory Effort, Clear to Auscultation Cardiovascular: NL Sounds; No Murmurs; No JVD, - - Mild tachycardia Abdominal: NL Sounds; No Tenderness; No Distention Lymphatic: No Cervical Adenopathy Extremities: No Edema, - - Cryo unit over R knee, dressing in place Skin: No Rash or Ulcers Neurological: Alert and Oriented x 3 Result Diagrams: 01/10/17 05:47 01/09/17 06:29 Assess/Plan/Problems-Billing Assessment: 66 yo F with hx of HTN, HLD, DM, GERD and obesity s/p R TKA - Patient Problems (1) S/P total knee arthroplasty Current Visit: Yes Comment: Right. Management as per Orthopedics. ASA held today. On Lovenox. (2) Tachycardia Current Visit: Yes Comment: Has had mild tachycardia, EKG this AM shows no concerning arrhythmias, rate in 90s. Likely due to pain, maybe slight contribution from anemia. Hb 8.8, do not think she needs transfusion. Seems like she may have had similar course after prior hip surgery. (3) HTN (hypertension) Current Visit: Yes Comment: BPs trending up. Restart Lisinopril. Continue Amlodipine. Holding HCTZ (4) HLD (hyperlipidemia) Current Visit: Yes Comment: Continue statin (5) Diabetes Current Visit: Yes Comment: BGs elevated. Will start Glipizide (on Glimepiride at home but non-formulary) Continue Metformin, Lantus 20 units BID and increased HISS. (6) GERD (gastroesophageal reflux disease) Current Visit: Yes Comment: Continue PPI (7) DVT prophylaxis Current Visit: Yes Comment: Lovenox
[2017-01-10] MEDS: Lisinopril TAB* 10 MG PO SCH (09:20)
[2017-01-10] MEDS: glyBURIDE TAB* 5 MG PO SCH (09:21)
[2017-01-10] MEDS: oxyCODONE TAB* 5 MG TAB PO PRN (09:23)
[2017-01-10] MEDS: Enoxaparin(*) 30 MG/0.3 ML SYR SUBCUT SCH (10:51)
[2017-01-10] MEDS: Insulin LISPRO* 1 UNITS UNIT SUBCUT SCH ×2 (12:33→17:27)
[2017-01-10] MEDS: metFORMIN* 500 MG TAB PO SCH (22:23)
[2017-01-10] MEDS: Atorvastatin* 10 MG TAB PO SCH (22:23)
[2017-01-11] MEDS: oxyCODONE/Acetamin 5/325 MG* TAB PO PRN ×3 (01:26→13:08)
[2017-01-11] MEDS: oxyCODONE TAB* 5 MG TAB PO PRN (05:36)
[2017-01-11 06:42] LABS: Hematocrit 24 % (35-47); Hemoglobin 8.3 g/dl (12.0-16.0)
[2017-01-11] MEDS: Lisinopril TAB* 10 MG PO SCH (08:57)
[2017-01-11] MEDS: Ascorbic Acid TAB* 500 MG PO SCH (08:57)
[2017-01-11] MEDS: Omeprazole CAP* 20 MG PO SCH (08:57)
[2017-01-11] MEDS: Cholecalciferol TAB* 1000 UNITS PO SCH (08:57)
[2017-01-11] MEDS: Docusate CAP* 100 MG PO SCH (08:57)
[2017-01-11] MEDS: glyBURIDE TAB* 5 MG PO SCH (08:58)
[2017-01-11] MEDS: amLODIPine TAB* 5 MG PO SCH (08:58)
[2017-01-11] MEDS: Magnesium Hydroxide LIQ* 30 ML UDC PO SCH (09:00)
[2017-01-11] MEDS: Insulin GLARGINE(*) 1 UNITS UNIT SUBCUT SCH (09:00)
[2017-01-11] MEDS: Enoxaparin(*) 30 MG/0.3 ML SYR SUBCUT SCH (09:01)
[2017-01-11] MEDS: Insulin LISPRO* 1 UNITS UNIT SUBCUT SCH ×2 (09:01→12:32)
--- NOTE | 2017-01-11 11:43 | PN ---
Progress Note - Progress Note SOAP: Subjective: 66 y/o female s/p R TKA by DR. Cabello 01/08/2017. Patient feeling well, dressed and sitting in chair, no complaints. Feels working well with PT, eager for D/ C home. afebrile, Vss overnight. Objective: General- Well appearing, NAD. Sitting in chair comfortably. MSK- RIGHT knee dressing removed, Incision c/d/i, no erythema/ drainage noted, new dressing applied, PT pulses 2+ b/l, neg homans sign, PF/ DF equal b/l, sensation grossly intact b/l LE's. Laboratory Results - last 24 hr 01/10/17 01/10/17 01/10/17 12:20 17:22 22:22 Hgb Hct POC Glucose (mg/dL) 289 H 235 H 229 H 01/11/17 01/11/17 06:30 07:16 Hgb 8.3 L Hct 24 L POC Glucose (mg/dL) 221 H Assessment: 66 y/o female s/p R TKA by DR. Cabello 01/08/2017. Plan: - DVT prophylaxis- ASA 325mg BID, lovenox today - Continue PT at home - Home health to visit - FOllow up with DR. Cabello within 10 days Vital Signs Temp 97.6 F 01/11/17 07:40 Pulse 92 01/11/17 07:40 Resp 16 01/11/17 10:05 BP 130/59 01/11/17 07:40 Pulse Ox 95 01/11/17 10:01 Intake & Output 01/10/17 01/11/17 01/11/17 18:59 06:59 18:59 Intake Total 1040 960 320 Output Total 1200 900 475 Balance -160 60 -155 Intake: Oral 1040 960 320 Output: Urine 1200 900 475 []
[2017-01-11 11:55] VITALS: BP 111/56
--- NOTE | 2017-01-13 23:52 | DS ---
DISCHARGE SUMMARY: DATE OF ADMISSION: 01/08/17 DATE OF DISCHARGE: 01/11/17 CHIEF COMPLAINT: 1. Right knee osteoarthritis. 2. Diabetes. 3. Hypertension. 4. Gastroesophageal reflux disease. 5. Hypercholesterolemia. DISCHARGE DIAGNOSES: 1. Right total knee arthroplasty. 2. Diabetes. 3. Hypertension. 4. Gastroesophageal reflux disease. 5. Hypercholesterolemia. PROCEDURE: Right total knee arthroplasty. CONSULTATIONS: 1. Physical Therapy. 2. Occupational Therapy. 3. Medicine consult. BRIEF HISTORY: Mrs. Melchor is a very pleasant 66-year-old female with severe end - stage degenerative osteoarthritis of the right knee who failed conservative treatment and elected to undergo a right total knee arthroplasty on 01/08/[address] Aby Cabello. HOSPITAL COURSE: Mrs. Melchor was admitted to [facility] on 01/08/17 where she underwent a right total knee arthroplasty, which was uncomplicated. Postoperatively, she recovered in the surgical short stay unit. Her Anthony was removed on postoperative day 2 and she was able to void on her own without difficulty. She advanced to a regular diet and her pain was controlled with oral Percocet. She was restarted on her home medications and her diabetes was managed by the hospitalist. Her DVT prophylaxis was managed with Lovenox and Coumadin until she reached a therapeutic INR. On postoperative day 3, she was orthopedically and medically stable for discharge to go home with home services. PHYSICAL EXAMINATION: General: Well appearing, in no acute distress. Alert and oriented, sitting in bed comfortably. Vital Signs: Temperature of 98.7, pulse rate 94, respirations 16, oxygen saturation 97% on room air, and blood pressure 111/56. Musculoskeletal: Right knee dressing removed. Incision clean , dry and intact. No erythema or drainage noted. No dressing applied. Posterior tibial pulses are 2+ bilaterally. Negative Dom's signs bilaterally. Plantar flexion and dorsiflexion equal bilaterally. Sensation is grossly intact in bilateral lower extremities. LABORATORY DATA: Hemoglobin and hematocrit 8.3 and 24. DISCHARGE MEDICATIONS: 1. Tylenol 650 mg p.o. q.4 hours p.r.n. 2. Norvasc 2.5 mg p.o. daily. 3. Vitamin C 1000 mg p.o. daily. 4. Aspirin 325 mg p.o. b.i.d. 5. Vitamin D3 2000 international units p.o. daily. 6. Colace 100 mg p.o. b.i.d. 7. Glimepiride 1 mg p.o. daily. 8. Ibuprofen 800 mg p.o. b.i.d. p.r.n. 9. Insulin glargine 20 units subcutaneously b.i.d. 10. Iron 1 tablet p.o. daily. 11. Lisinopril/hydrochlorothiazide 20/12.5 mg p.o. 1 tablet daily. 12. Metformin 500 mg p.o. q.h.s. 13. Multivitamin 1 tablet daily p.o. 14. Omeprazole 40 mg p.o. daily. 15. Simvastatin 20 mg p.o. q.h.s. 16. Percocet 1 to 2 tablets every 3 hours as needed for pain. CONDITION ON DISCHARGE: Stable. DISCHARGE INSTRUCTIONS: Mrs. Melchor is a very pleasant 66-year-old female, postoperative day 3, status post right total knee arthroplasty which was uncomplicated. She is orthopedically and medically stable for discharge to go home with home services. Her labs and vital signs are stable. She will restart her home medications, she will take aspirin 325 mg p.o. b.i.d. for DVT prophylaxis. She will have visiting home nursing services and physical therapy twice a week. She will take Percocet as needed for pain control as instructed and Colace as needed up to 3 times a day for constipation. She will remain weightbearing as tolerated on the right lower extremity. She will follow up with Dr. Cabello in approximately 10 to 14 days for incision check and suture removal. She was instructed to go immediately to the ER should she develop chest pain or shortness of breath. Should she develop fever, increasing pain, or redness, she is to call the office immediately. MANUEL BEARD [id number]/[facility] #: [id number] JL
== END 2017-01-11 13:20 | disposition home health service (06) | DRG 470 ==
LOC: AA 10:10 → SSU 17:37
PROVIDERS: ADMIT Orthopaedic Surgery Adult Reconstructive Orthopaedic Surgery; ATTEND Orthopaedic Surgery Adult Reconstructive Orthopaedic Surgery
PROC: 0SRC0J9 Replacement of Right Knee Joint with Synthetic Substitute, Cemented, Open Approach (ICD-10-PCS; principal; 2017-01-08 12:30)
DX: M17.11 Unilateral primary osteoarthritis, right knee (principal); I10 Essential (primary) hypertension; E11.9 Type 2 diabetes mellitus without complications; E78.5 Hyperlipidemia, unspecified; D64.9 Anemia, unspecified; K21.9 Gastro-esophageal reflux disease without esophagitis; Z96.641 Presence of right artificial hip joint; G89.29 Other chronic pain; M21.061 Valgus deformity, not elsewhere classified, right knee; M25.761 Osteophyte, right knee; E66.9 Obesity, unspecified; R00.0 Tachycardia, unspecified; E78.00 Pure hypercholesterolemia, unspecified; Z90.710 Acquired absence of both cervix and uterus; Z98.49 Cataract extraction status, unspecified eye; Z88.8 Allergy status to other drugs, medicaments and biological substances; Z88.5 Allergy status to narcotic agent; Z88.1 Allergy status to other antibiotic agents; Z83.3 Family history of diabetes mellitus; Z82.49 Family history of ischemic heart disease and other diseases of the circulatory system; Z80.9 Family history of malignant neoplasm, unspecified; Z68.34 Body mass index [BMI] 34.0-34.9, adult; Z87.891 Personal history of nicotine dependence
CPT/HCPCS: 36415; 80048; 85014; 85018; 88305; 88311; 93005; A9270-GY; C1776; J0690; J0780; J1170; J1200; J1240; J1650; J2250; J2270; J2300; J2405; J2704; J3010

== ENCOUNTER 2018-05-29 11:00 | Inpatient (IN) | payer OTHER ==
--- NOTE | 2018-05-20 12:54 | HP ---
HISTORY AND PHYSICAL: DATE OF ADMISSION/SURGERY: 05/29/18 DATE OF OFFICE VISIT: 05/12/18 SURGEON: Aby Cabello MD * (DICTATED BY MANUEL GODOY) PROCEDURE: Left total knee arthroplasty. CHIEF COMPLAINT: Left knee pain. HISTORY OF PRESENT ILLNESS: Ms. Melchor is a 68-year-old female with end-stage osteoarthritis of the left knee. She has failed conservative treatment and elected to proceed with a left total knee arthroplasty. PAST MEDICAL HISTORY: Hypertension, diabetes, GERD, and high cholesterol. PAST SURGICAL HISTORY: Right total knee arthroplasty, right total hip arthroplasty, hysterectomy, cataract removal, and carpal tunnel release. CURRENT MEDICATIONS: 1. Lisinopril/hydrochlorothiazide 20/12.5 mg daily. 2. Glimepiride 1 mg 1 tab in the morning, 2 tabs at night. 3. Omeprazole 40 mg daily. 4. Simvastatin 20 mg daily. 5. Lantus. 6. Humalog. 7. Multivitamin. 8. Amlodipine 2.5 mg daily. 9. Vitamin C. 10. Vitamin D3. ALLERGIES: DOXYCYCLINE, LEVAQUIN, INVOKANA, CODEINE causing an upset stomach, and WARFARIN causing diarrhea. FAMILY HISTORY: Diabetes, heart disease, stroke, and cancer. SOCIAL HISTORY: She is a 68-year-old female. She lives with her daughter. She does not smoke, use drug or alcohol. REVIEW OF SYSTEMS: A complete 14-point review of systems was reviewed with the patient. It is positive for GERD. She denies history of DVT, PE, hepatitis, HIV, or anesthesia problems. PHYSICAL EXAMINATION GENERAL: She is well developed, well nourished, in no acute distress. VITAL SIGNS: She stands 5 feet 6 inches tall, weighs 220 pounds. Her blood pressure is 120/78 and heart rate is 88. HEENT: Normocephalic, atraumatic. NECK: Supple. No palpable lymph nodes. PULMONARY: The lungs are clear to auscultation bilaterally. CARDIO: Regular rate and rhythm. Strong S1, S2. ABDOMEN: Soft, nontender, nondistended. MUSCULOSKELETAL: Left lower extremity: The skin is intact. There are no open wounds or abrasions. There is a moderate joint effusion. She walks with an antalgic-type gait favoring her left knee. Range of motion is 5 to 120 degrees of flexion with patellofemoral crepitus. There is a 12-degree valgus deformity. She has a 2+ dorsalis pedis pulse. Intact sensation in her lower extremity. Muscle group strengths are intact at 5/5. NEUROLOGIC: She is alert and oriented x3. ASSESSMENT AND PLAN: Ms. Melchor is a 68-year-old female with end-stage osteoarthritis of her left knee. She has failed conservative treatment and elected to proceed with a left total knee arthroplasty, which is scheduled for 05/29/[address] Cabello discussed the risks and benefits of the surgery at today's visit and all of her questions were answered. She will follow up with Dr. Cabello 2 weeks after the surgery. Postoperatively, will use aspirin 325 twice a day for DVT prophylaxis. MANUEL GODOY [id number]/[facility] #: [id number] JL
--- NOTE | 2018-07-01 06:38 | HP ---
AMENDED REPORT NOW INCLUDES DESIGNATED COSIGNER PREOPERATIVE HISTORY AND PHYSICAL: DATE OF ADMISSION: 07/10/18 DATE OF OFFICE VISIT: 06/30/18 ATTENDING PHYSICIAN: Dr. Aby Cabello.* (DICTATED BY MANUEL GUTIERREZ) SURGERY: Left total knee arthroplasty. CHIEF COMPLAINT: Left knee pain. HISTORY OF PRESENT ILLNESS: Ms. Melchor is a 68-year-old female with complaints of left knee pain. She has failed conservative management and has elected to proceed with left total knee arthroplasty scheduled for 07/10/18. PAST MEDICAL HISTORY: Significant for arthritis of the hip, spondylolisthesis, spinal stenosis, osteoarthritis, hip. CURRENT MEDICATIONS: 1. Lisinopril/hydrochlorothiazide 20/12.5 mg daily. 2. Glimepiride 1 mg 1 tab in a.m., 2 tabs q.p.m. 3. Omeprazole 40 mg 1 p.o. daily. 4. Simvastatin 20 mg 1 p.o. daily. 5. Lantus 100 units/mL inject 20 units q.h.s. 6. Humalog 100 units daily. 7. Multivitamin. 8. Amlodipine 2.5 mg 1 p.o. daily. ALLERGIES: DOXYCYCLINE, LEVAQUIN, CODEINE, INVOKANA, WARFARIN. REVIEW OF SYSTEMS: The patient denies recent loss of consciousness, lightheadedness, dizziness, shortness of breath, chest pain, palpitation, gastrointestinal or genitourinary discomfort. PHYSICAL EXAMINATION GENERAL: The patient is a 68-year-old female. She is alert and oriented x3, in no acute distress. HEENT: PERRLA. NECK: Supple. LUNGS: Clear to auscultation. HEART: Regular rate and rhythm. No murmurs auscultated. ABDOMEN: Soft and nontender. Normoactive bowel sounds x4 quadrants. EXTREMITIES: Examination of the left lower extremity reveals her skin to be intact without open wounds or abrasions. There is tenderness along the medial joint line. Motion from 5 degrees to 120 degrees. Her calf is soft and nontender. She has active dorsiflexion of the left ankle. Circulation and sensation intact. IMPRESSION: Ms. Melchor is a 68-year-old female with end-stage osteoarthritis of the left knee. PLAN/RECOMMENDATIONS: She has elected to proceed with left total knee arthroplasty, which is scheduled on 07/10/[address] Cabello. All questions, risks, and benefits were discussed today. She will follow up with Dr. Cabello roughly in 2 weeks post surgery. MANUEL GUTIERREZ [id number]/[facility] #: [id number] [facility] [place] [facility]aman
[2018-07-09] MEDS ORDERED: Buffered Lidocaine 0.9% SYRIN* 5 ML/SYR SYRINGE INTRADERM ONE (15:17)
[2018-07-10] MEDS ORDERED: Tranexamic Acid 1,000 MG in NS 0.9% 50 ML* (outpatient use) IV SCH ×2
[2018-07-10] MEDS ORDERED: Famotidine IV* 10 MG/ML 2 ML (20 mg) IV ONE (06:00)
[2018-07-10] MEDS ORDERED: Acetaminophen TAB* 325 MG PO ONE (06:00)
[2018-07-10] MEDS ORDERED: Gabapentin CAP(*) 300 MG PO ONE (06:00)
[2018-07-10] MEDS ORDERED: celeCOXIB CAP* 200 MG PO ONE (06:00)
[2018-07-10] MEDS ORDERED: Lactated Ringers 1000 ML Bag* 1,000 ML IV SCH (06:00)
[2018-07-10] MEDS ORDERED: Acetaminophen TAB* 325 MG ONE (09:32)
[2018-07-10] MEDS ORDERED: Gabapentin CAP(*) 300 MG ONE (09:32)
[2018-07-10] MEDS ORDERED: Famotidine IV* 10 MG/ML 2 ML (20 mg) ONE (09:32)
[2018-07-10] MEDS ORDERED: ceFAZolin 2 GM in NS PREMIX(*) 2 GM/100 ML BAG IVPB ONE (09:32)
[2018-07-10] MEDS ORDERED: celeCOXIB CAP* 100 MG ONE (09:32)
[2018-07-10] MEDS ORDERED: ROPIVACAINE 5 MG/ML 30 ML BTL (0.5%) ONE (09:47)
[2018-07-10] MEDS ORDERED: Phenylephrine INJ* 10 MG/ML 1 ML VIAL (10 MG) ONE (09:47)
[2018-07-10] MEDS ORDERED: Dexamethasone IV* 4 MG/ML 1 ML (4 MG) ONE (09:47)
[2018-07-10] MEDS ORDERED: Propofol* 10 MG/ML 20 ML BTL IV PUSH ONE (09:47)
[2018-07-10] MEDS ORDERED: fentaNYL* 50 MCG/ML 2 ML VIAL (100 MCG VIAL) ONE (09:47)
[2018-07-10] MEDS ORDERED: Midazolam* 1 MG/ML 10 ML VIAL (10 MG) ONE (09:47)
[2018-07-10] MEDS ORDERED: Lidocaine 2% PF * 5 ML VIAL ONE ×2 (09:47→12:21)
[2018-07-10] MEDS ORDERED: Ondansetron INJ* 2 MG/ML VIAL ONE (09:47)
[2018-07-10] MEDS ORDERED: Propofol* 500 MG/50 ML BTL ONE (09:47)
[2018-07-10] MEDS ORDERED: Bupivacaine 0.5% SDV PF* 30ML VIAL ONE ×2 (09:47→10:22)
[2018-07-10] MEDS ORDERED: KETAMINE HCL* 50 MG/ML 10 ML VIAL ONE (09:47)
[2018-07-10] MEDS ORDERED: Bisacodyl SUPP* 10 MG SUPP PR PRN (14:24)
[2018-07-10] MEDS ORDERED: Polyethylene Glycol 3350* 17 GM PACKET PO PRN (14:24)
[2018-07-10] MEDS ORDERED: diPHENhydraMINE PO* 25 MG PO PRN (14:24)
[2018-07-10] MEDS ORDERED: diPHENhydraMINE IV* 50 MG/ML 1 ml VIAL (BENADRYL) IV PRN (14:24)
[2018-07-10] MEDS ORDERED: Magnesium Hydroxide LIQ* 30 ML UDC PO PRN (14:24)
[2018-07-10] MEDS ORDERED: oxyCODONE/Acetamin 5/325 MG* TAB PO PRN (14:24)
[2018-07-10] MEDS ORDERED: Naloxone* 0.4 MG/ML 1 ML VIAL IV PRN (14:26)
[2018-07-10] MEDS ORDERED: fentaNYL* 50 MCG/ML 2 ML VIAL (100 MCG VIAL) IV PRN (14:26)
[2018-07-10] MEDS ORDERED: Ondansetron INJ* 2 MG/ML VIAL IV PRN (14:26)
[2018-07-10] MEDS ORDERED: Dextrose 50% Syringe 50 ML* 25 GM/50 ML SYRINGE IV PUSH PRN (15:11)
--- OUTSIDE RECORDS SUMMARY | 2018-07-10 16:04 | XMS REPORT ---
:1950 External Reference #:[id number] Author Organization [facility] Address [address] [address] [place] [address] Phone [phone] Care Team Providers Name Role Phone Deangelo Sethi MD Primary Care Physician Unavailable Payers Type Date Identification Numbers Payment Provider Subscriber Commercial Policy Number: [id number] [employer] Number: [id number] [address] PayID: [id number] [place] [address] Medigap Part B Expires: 2016 Policy Number: [employer] Bell Moon [id number] Group Number: [id number] [address] PayID: [id number] [place] [address] Workers Onset: 2013 Policy Number: Benji Bell Compensation [id number] Kin Moon PayID: [id number] [address] [place] [address] Problems Date Description Provider Status Onset: 05/16/2016 Localized, primary osteoarthritis Aby Cabello M.D. Active Onset: 05/16/2016 Localized, primary osteoarthritis of the Aby Cabello M.D. Active pelvic region and thigh Onset: 05/28/2016 Spinal stenosis of lumbar region Phil Wright M.D. Active Onset: 05/28/2016 Acquired spondylolisthesis Phil Wright M.D. Active Onset: 01/18/2017 Arthroplasty of knee Aby Cabello M.D. Active Onset: 07/18/2016 Prosthetic arthroplasty of the hip Aby Cabello M.D. Active Family History Date Family Member(s) Problem(s) Comments General Diabetes General Heart Disease General Cancer General Hypertension General Stroke Social History Type Date Description Comments Lives With Daughter Occupation graduate field asst ETOH Use Denies alcohol use Smoking Patient is a former smoker Recreational Drug Use Denies Drug Use Exercise Type/Frequency Exercises sporadically Allergies, Adverse Reactions, Alerts Date Description Reaction Status Severity Comments 11/02/2013 Doxycycline active 01/11/2014 Levaquin active 01/11/2014 Codeine active 06/22/2016 Invokana active 05/12/2018 Warfarin active Medications Medication Date Status Form Strength Qnty SIG Indications Ordering Provider Amoxicillin 03/29 Active Tablets 500mg 4tabs take 4 Z96.651 tablets by Irineo, mouth 1 hour M.D. before dental procedure Lisinopril/Hydroc Active Tablets 20-12.5mg 30tab 1 po qd Unknown hlorothiazide / s Glimepiride Active Tablets 1mg 1 tab Am, 2 Unknown /0000 tabs PM Omeprazole Active Capsules 40mg 90cap 1 po qd Unknown /0000 DR s Simvastatin Active Tablets 20mg 1 po qd Unknown / Lantus Solostar Active Solution 100Unit/M Inject 20 Unknown /0000 Pen-Injec L Units t Beneath The Skin Every Day AT Bedtime Humalog Active Supn (50-50)10 Unknown /0000 0Unit/ML Multi Complete Active Unknown /0000 Amlodipine Active Tablets 2.5mg 1 by mouth Unknown Besylate /0000 every day Percocet 12/28 Hx Tablets 5-325mg 90tab 1-2 by mouth s every 4-6 Irineo, - hours as M.D. 04/17 needed pain Zofran 12/28 Hx Tablets 4mg 30tab take 1 by s mouth twice Irineo, - a day as M.D. 04/17 needed for nausea Colace 12/28 Hx Capsules 100mg 90cap 1 tab by s mouth 2-3 Irineo, - times a day M.D. 04/17 as needed Zofran 07/08 Hx Tablets 4mg 30tab 1 tab by Aby s mouth every Irineo, - 6 hours as M.D. 08/16 needed nausea Nitrofurantoin 06/25 Hx Capsules 100mg 14cap take 1 tab Macrocrystalline s twice a day Irineo, - by mouth for M.D. 10/02 7 days Percocet 06/22 Hx Tablets 5-325mg 60tab 1 -2 tabs by Aby s mouth every Irineo, - 4-6 hours as M.D. 08/16 needed pain Coumadin 06/22 Hx Tablets 2mg 60tab take 1-3 Aby s tabs at Irineo, - dinnertime M.D. 07/16 as directed by [facility] - DO Not take this medication prior to surgery Colace 06/22 Hx Capsules 100mg 90cap 1 tab by Aby s mouth up to Irineo, - three times M.D. 08/16 a day needed constipation [place] 01/11 Hx Tablets 5-325mg 30tab 1-2 by mouth s q4-6 hour as [place] - needed pain eleazar, M.D. 05/15 Metformin HCL 0000 Hx Tablets 500mg Unknown /0000 - 05/11 Invokana 0000 Hx Tablets 100mg 1 by mouth Unknown /0000 every day - before 05/28 Tramadol HCL 00 Hx Tablets 50mg Take One Unknown /0000 Tablet By - Mouth Every 10/02 6 Hours Needed For Pain Before Surge Medications Administered in Office Medication Date Status Form Strength Qnty SIG Indications Ordering Provider Depomedrol Administered Injection Aby 40MG Omar Cabello M.D. Depomedrol Administered Injection Aby 40MG Omar Cabello M.D. Vital Signs Date Vital Result Comment 06/30/2018 Height 66.5 inches 5'6.50" Weight 220.00 lb Heart Rate 64 /min BP Systolic 124 mmHg BP Diastolic 80 mmHg Respiratory Rate 16 /min Body Temperature 98.2 F Pain Level 5 BMI (Body Mass Index) 35.0 kg/m2 05/12/2018 Height 66.5 inches 5'6.50" Weight 221.00 lb Heart Rate 88 /min BP Systolic 120 mmHg BP Diastolic 76 mmHg BMI (Body Mass Index) 35.1 kg/m2 2018 Height 66.5 inches 5'6.50" Weight 220.00 lb Heart Rate 88 /min BP Systolic 128 mmHg BP Diastolic 74 mmHg BMI (Body Mass Index) 35.0 kg/m2 03/29/2017 Height 66.5 inches 5'6.50" Weight 211.00 lb BP Systolic 124 mmHg BP Diastolic 70 mmHg Respiratory Rate 18 /min Pain Level 0 BMI (Body Mass Index) 33.5 kg/m2 02/15/2017 Height 66.5 inches 5'6.50" Weight 211.00 lb Heart Rate 81 /min BP Systolic 131 mmHg BP Diastolic 84 mmHg Body Temperature 97.4 F Pain Level 0 BMI (Body Mass Index) 33.5 kg/m2 01/18/2017 Height 66.5 inches 5'6.50" Weight 213.00 lb Heart Rate 99 /min BP Systolic 107 mmHg BP Diastolic 66 mmHg Body Temperature 97.7 F Pain Level 4 BMI (Body Mass Index) 33.9 kg/m2 12/28/2016 Height 66 inches 5'6" Weight 213.00 lb Heart Rate 91 /min BP Systolic 135 mmHg BP Diastolic 85 mmHg Body Temperature 98.4 F BMI (Body Mass Index) 34.4 kg/m2 12/03/2016 Height 66.5 inches 5'6.50" Weight 211.00 lb Heart Rate 90 /min BP Systolic 130 mmHg BP Diastolic 86 mmHg Body Temperature 97.5 F BMI (Body Mass Index) 33.5 kg/m2 10/05/2016 Height 66 inches 5'6" Weight 250.00 lb Heart Rate 88 /min BP Systolic 138 mmHg BP Diastolic 78 mmHg Respiratory Rate 16 /min Body Temperature 97.3 F Pain Level 0 BMI (Body Mass Index) 40.3 kg/m2 08/17/2016 Height 66 inches 5'6" Heart Rate 91 /min BP Systolic 121 mmHg BP Diastolic 84 mmHg Pain Level 0 07/18/2016 Height 66 inches 5'6" Weight 203.00 lb Heart Rate 88 /min BP Systolic 142 mmHg BP Diastolic 80 mmHg Respiratory Rate 16 /min Body Temperature 98.1 F Pain Level 0 BMI (Body Mass Index) 32.8 kg/m2 06/22/2016 Height 66 inches 5'6" Weight 203.00 lb Heart Rate 64 /min BP Systolic Sitting 132 mmHg BP Diastolic Sitting 68 mmHg Respiratory Rate 18 /min Pain Level 6 BMI (Body Mass Index) 32.8 kg/m2 05/28/2016 Height 66 inches 5'6" Weight 203.00 lb Heart Rate 78 /min BP Systolic Sitting 130 mmHg BP Diastolic Sitting 82 mmHg Pain Level 5 BMI (Body Mass Index) 32.8 kg/m2 05/16/2016 Height 66 inches 5'6" Weight 211.00 lb Heart Rate 89 /min BP Systolic 119 mmHg BP Diastolic 80 mmHg BMI (Body Mass Index) 34.1 kg/m2 03/09/2014 Height 67 inches 5'7" Weight 212.00 lb Heart Rate 84 /min BMI (Body Mass Index) 33.2 kg/m2 02/01/2014 Height 67 inches 5'7" Heart Rate 85 /min BP Systolic 115 mmHg BP Diastolic 75 mmHg 01/11/2014 Height 67 inches 5'7" Weight 212.00 lb Heart Rate 83 /min BP Systolic 128 mmHg BP Diastolic 85 mmHg BMI (Body Mass Index) 33.2 kg/m2 11/02/2013 Height 67 inches 5'7" Weight 212.00 lb Heart Rate 81 /min BP Systolic 143 mmHg BP Diastolic 94 mmHg BMI (Body Mass Index) 33.2 kg/m2 Results Test Date Test Result H/L Range Note Urine Culture And 05/16/2018 Urine Culture SEE RESULT BELOW 1 Sensitivities Type & Screen 05/16/2018 Patient Blood O Positive Type Antibody Screen NEGATIVE Laboratory test finding 05/16/2018 Partial Thrombo Time 30.2 seconds 26.0 -36.3 PTT Inr/Protime 05/16/2018 Inr 0.92 0.77-1.02 Urinalysis Profile 05/16/2018 Urine Color Yellow Urine Appearance Cloudy Urine Specific [place] 1.020 1.010-1.030 Urine pH 5.0 5-9 Urine Urobilinogen Negative Negative Urine Ketones Negative Negative Urine Protein Negative Negative Urine Leukocytes Negative Negative Urine Blood Negative Negative * * Negative 2 Urine Nitrite Negative Negative Urine Bilirubin Negative Negative Urine Glucose Negative Negative CBC No Diff 12/28/2016 White Blood Count 9.1 10^3/uL 3.5-10.8 3 Red Blood Count 4.22 10^6/uL 4.0-5.4 3 Hemoglobin 12.6 g/dL 12.0-16.0 3 Hematocrit 37 % 35-47 3 Mean Corpuscular Volume 89 fL 80-97 3 Mean Corpuscular Hemoglobin 30 pg 27-31 3 Mean Corpuscular HGB Conc 34 g/dL 31-36 3 Red Cell Distribution Width 14 % 10.5-15 3 Platelet Count 262 10^3/uL 150-450 3 Mean Platelet Volume 8 um3 7.4-10.4 3 Comp Metabolic Panel 12/28/2016 Sodium 137 mmol/L 133-145 3 Potassium 4.4 mmol/L 3.5-5.0 3 Chloride 103 mmol/L 101-111 3 Co2 Carbon Dioxide 24 mmol/L 22-32 3 Anion Gap 10 mmol/L 2-11 3 Glucose 175 mg/dL High 70-100 3 Blood Urea Nitrogen 28 mg/dL High 6-24 3 Creatinine 0.99 mg/dL High 0.51-0.95 3 BUN/Creatinine Ratio 28.3 High 8-20 3 Calcium 9.8 mg/dL 8.6-10.3 3 Total Protein 7.6 g/dL 6.4-8.9 3 Albumin 4.5 g/dL 3.2-5.2 3 Globulin 3.1 g/dL 2-4 3 Albumin/Globulin Ratio 1.5 1-3 3 Total Bilirubin 0.40 mg/dL 0.2-1.0 3 Alkaline Phosphatase 74 U/L 34-104 3 Alt 28 U/L 7-52 3 Ast 22 U/L 13-39 3 Egfr Non- 56.3 >60 3 Egfr 72.4 >60 3, 4 Inr/Protime 12/28/2016 Inr 0.89 0.89-1.11 3 Laboratory test finding 12/28/2016 Partial Thrombo Time 28.8 seconds 26.0 -36.3 3 PTT Urinalysis Profile 12/28/2016 Urine Color Yellow 3 Urine Appearance Clear 3 Urine Specific [place] 1.015 1.010-1.030 3 Urine pH 5.0 5-9 3 Urine Urobilinogen Negative Negative 3 Urine Ketones Negative Negative 3 Urine Protein Negative Negative 3 Urine Leukocytes Negative Negative 3 Urine Blood Negative Negative 3 * * Negative 3, 5 Urine Nitrite Negative Negative 3 Urine Bilirubin Negative Negative 3 Urine Glucose 2+(150 mg/dL) Negative 3 Type & Screen 12/28/2016 Patient Blood Type O Positive 3 Antibody Screen NEGATIVE 3 Urine Culture And 12/28/2016 Urine Culture SEE RESULT BELOW 3, 6 Sensitivities Urine Culture And 06/22/2016 Urine Culture SEE RESULT BELOW 7, 8 Sensitivities Type & Screen 06/22/2016 Patient Blood Type O Positive 7 Antibody Screen NEGATIVE 7 Comp Metabolic Panel 06/22/2016 Sodium 138 mmol/L 133-145 7 Potassium 4.4 mmol/L 3.5-5.0 7 Chloride 105 mmol/L 101-111 7 Co2 Carbon Dioxide 26 mmol/L 22-32 7 Anion Gap 7 mmol/L 2-11 7 Glucose 60 mg/dL Low 70-100 7 Blood Urea Nitrogen 24 mg/dL 6-24 7 Creatinine 1.06 mg/dL High 0.51-0.95 7 BUN/Creatinine Ratio 22.6 High 8-20 7 Calcium 9.8 mg/dL 8.6-10.3 7 Total Protein 7.5 g/dL 6.4-8.9 7 Albumin 4.2 g/dL 3.2-5.2 7 Globulin 3.3 g/dL 2-4 7 Albumin/Globulin Ratio 1.3 1-3 7 Total Bilirubin 0.30 mg/dL 0.2-1.0 7 Alkaline Phosphatase 52 U/L 34-104 7 Alt 35 U/L 7-52 7 Ast 30 U/L 13-39 7 Egfr Non- 52.0 >60 7 Egfr 66.9 >60 7, 9 CBC No Diff 06/22/2016 White Blood Count 10.6 10^3/uL 3.5-10.8 7 Red Blood Count 3.98 10^6/uL Low 4.0-5.4 7 Hemoglobin 11.8 g/dL Low 12.0-16.0 7 Hematocrit 35 % 35-47 7 Mean Corpuscular Volume 89 fL 80-97 7 Mean Corpuscular Hemoglobin 30 pg 27-31 7 Mean Corpuscular HGB Conc 33 g/dL 31-36 7 Red Cell Distribution Width 15 % 10.5-15 7 Platelet Count 306 10^3/uL 150-450 7 Mean Platelet Volume 8 um3 7.4-10.4 7 Urinalysis Profile 06/22/2016 Urine Color Yellow 7 Urine Appearance Cloudy 7 Urine Specific [place] 1.015 1.010-1.030 7 Urine pH 5.0 5-9 7 Urine Urobilinogen Negative Negative 7 Urine Ketones Negative Negative 7 Urine Protein Negative Negative 7 Urine Leukocytes 2+ Negative 7 Urine Blood Negative Negative 7 * * Negative 7, 10 Urine Nitrite Positive Negative 7 Urine Bilirubin Negative Negative 7 Urine Glucose Negative Negative 7 Urine White Blood Cell 2+(11-20/hpf) Absent 7 Urine Red Blood Cell Absent Absent 7 Urine Bacteria 2+ Absent 7 Urine Squamous Epithelial Cell Present Absent 7 Laboratory test finding 06/22/2016 Partial Thrombo Time 31.4 seconds 26.0 -36.3 7, 11 PTT Inr/Protime 06/22/2016 Inr 0.94 0.89-1.11 7 1 SEE RESULT BELOW Name: BELL MOON : [address]: Aby Cabello MD Acct: [id number] Unit: [id number] AGE: 68 Location: [facility] Re05/16/18 SEX: F Status: REG REF SPEC: [id number] HERMELINDO: 05/16/18-[address] [facility] [address]: Aby Cabello MD REQ: [id number] RECD: 05/16/18 STATUS: COMP _ SOURCE: URINE SPDESC: ORDERED: Urine Culture QUERIES: Urine Source: Clean Catch Procedure Result Reported Site Urine Culture Final 05/18/18- 951 ML No growth of clinically significant organisms * ML - Main Lab . END OF REPORT DEPARTMENT OF PATHOLOGY, [address] [place] [address] Nahum Babcock M.D. Director [facility] # [id number] 2 *Ascorbic acid is present which may interfere with detection of blood. 3 SD [id number] 4 Because ethnic data is not always readily available, this report includes an eGFR for both -Americans and non- Americans. The National Kidney Disease Education Program (NKDEP) does not endorse the use of the MDRD equation for patients that are not between the ages of 18 and 70, are , have extremes of body size, muscle mass, or nutritional status, or are non- or non-. According to the National Kidney Foundation, irrespective of diagnosis, the stage of the disease is based on the level of kidney function: Stage Description GFR(mL/min/1.73 m(2)) 1 Kidney damage with normal or decreased GFR 90 2 Kidney damage with mild decrease in GFR 60-89 3 Moderate decrease in GFR 30-59 4 Severe decrease in GFR 15-29 5 Kidney failure <15 (or dialysis) 5 *Ascorbic acid is present which may interfere with detection of blood. 6 SEE RESULT BELOW Name: SANTI MOONJEFRY Bell : [address]: Aby Cabello MD Acct: [id number] Unit: [id number] AGE: 66 Location: [facility] Re12/28/16 SEX: F Status: REG REF SPEC: [id number] HERMELINDO: 12/28/[address] [facility] [address]: Aby Cabello MD REQ: [id number] RECD: 12/28/16 STATUS: COMP _ SOURCE: URINE SPDESC: ORDERED: Urine Culture COMMENTS: BONNIE [id number] QUERIES: Urine Source: Clean Catch Procedure Result Reported Site Urine Culture Final 12/30/16- 821 ML No growth of clinically significant organisms * ML - MAIN LAB ([facility]) . END OF REPORT * ML=Testing performed at Main Lab DEPARTMENT OF PATHOLOGY, [address] [place] [address] Nahum Babcock M.D. Director [facility] # [id number] 7 SURGERY 07/05/16 AA 8 SEE RESULT BELOW Name: BELL MOON : [address]: Aby Cabello MD Acct: [id number] Unit: [id number] AGE: 66 Location: [facility] Re06/22/16 SEX: F Status: REG REF SPEC: [id number] HERMELINDO: 06/22/16-[address]: Aby Cabello MD REQ: [id number] RECD: 06/22/16 STATUS: COMP _ SOURCE: URINE SPDESC: ORDERED: Urine Culture COMMENTS: SURGERY 07/05/16 AA Procedure Result Reported Site Urine Culture Final 06/24/16- 0803 ML Organism 1 ESCHERICHIA COLI [place] Count >100,000 (Many) CFU/ML 1. ESCHERICHIA COLI M.I.C. RX --------- ------ Ampicillin >=32 R Cefazolin <=4 S Cefepime <=1 S Ceftriaxone <=1 S Ciprofloxacin <=0.25 S Gentamicin <=1 S Levofloxacin <=0.12 S Meropenem <=0.25 S Nitrofurantoin <=16 S Tetracycline <=1 S Pipercillin/Tazobactam <=4 S Trimethoprim/Sulfamethoxazole >=320 R Amoxicillin/Clavulanic Acid 4 S Aztreonam <=1 S Contact the Microbiology Department for any additional antibiotic reporting. * ML - MAIN LAB ([facility]) . END OF REPORT * ML=Testing performed at Main Lab DEPARTMENT OF PATHOLOGY, [address] [place] [address] Nahum Babcock M.D. Director [facility] # [id number] 9 Because ethnic data is not always readily available, this report includes an eGFR for both -Americans and non- Americans. The National Kidney Disease Education Program (NKDEP) does not endorse the use of the MDRD equation for patients that are not between the ages of 18 and 70, are , have extremes of body size, muscle mass, or nutritional status, or are non- or non-. According to the National Kidney Foundation, irrespective of diagnosis, the stage of the disease is based on the level of kidney function: Stage Description GFR(mL/min/1.73 m(2)) 1 Kidney damage with normal or decreased GFR 90 2 Kidney damage with mild decrease in GFR 60-89 3 Moderate decrease in GFR 30-59 4 Severe decrease in GFR 15-29 5 Kidney failure <15 (or dialysis) 10 *Ascorbic acid is present which may interfere with detection of blood. 11 SURGERY 07/05/16 AA Procedures Date CPT Code Description Status 01/10/2017 75484 EKG, Interpretation Only Completed 01/08/2017 82178 TKR Total Knee Replacement Completed 01/08/2017 61316 TKR Total Knee Replacement Completed 01/08/2017 95752 TKR Total Knee Replacement Completed 07/05/2016 83860 THR Total Hip Replacement Completed 07/05/2016 03635 THR Total Hip Replacement Completed 05/16/2016 02976 Inject/Drain Joint/Bursa Major W/O US Completed 01/21/2014 15683 Carpal Tunnel Release Completed 01/21/2014 18094 Carpal Tunnel Release Completed 11/02/2013 22968 Rad Exam; Hand Comp Completed Encounters Type Date Location Provider CPT E/M Dx Office Visit 2018 [facility] Aby Cabello M.D. 14560 M25.562 1:00p Of C.M.ALillian M25.462 M17.12 M21.062 M16.12 Office Visit 01/10/2017 1:51p [facility], [place] [address] E11.8 Hospitalists E78.5 Z96.651 Office Visit 01/09/2017 1:51p [facility], [place] [address] E11.8 Hospitalists E78.5 Z96.651 Office Visit 01/08/2017 1:50p [facility] Aubree Cordova, [address] E78.5 Assoc, VP [employer] Hospitalists E11.8 Z96.651 I10 Office Visit 12/03/2016 3:00p [facility] Aby Cabello M.D. 72179 Z96.641 C.M.A. M25.551 M16.11 M25.561 M25.461 M17.11 Office Visit 10/05/2016 3:00p [facility] Aby Cabello M.D. 67310 Z47.1 C.M.A. Z96.641 M25.551 Office Visit 07/08/2016 12:49p [facility], [place] [address] E11.9 Hospitalists I10 Z96.641 Z79.4 Office Visit 07/07/2016 12:48p [facility], [place] [address] E11.9 Hospitalists I10 Z96.641 Z79.4 Office Visit 07/06/2016 12:48p [facility], [place] [address] E11.9 Hospitalists I10 Z96.641 Z79.4 Office Visit 07/05/2016 12:47p [facility], [place] [address] E11.9 Hospitalists I10 Z96.641 Z79.4 Office Visit 05/28/2016 3:15p [facility] Phil Wright, 92117 M48.06 Of Glenda Alicea M43.16 Office Visit 05/16/2016 8:00a [facility] Aby Cabello M.D. 05293 M25.562 C.M.A. M25.561 M17.0 M25.462 M25.461 M25.551 M16.11 Plan of Care Future Appointment(s):07/10/2018 12:30 pm - CLINTON Ramos at [facility]07/10/2018 12:30 pm - MANUEL Espinoza at [facility].07/10/2018 12:30 pm - Aby Cabello M.D. at [facility]06/30/2018 - Aby Cabello M.D.M25.562 Pain in left kneeFollow up:Follow up: to OR: 10-14 days post opM25.462 Effusion, left kneeM17.12 Unilateral primary osteoarthritis, left kneeM21.062 Valgus deformity , not elsewhere classified, left knee
--- NOTE | 2018-07-10 16:36 | PN ---
Progress Note - Progress Note Date of Service: 07/10/18 Note: patient resting comfortably in bed with mild complaints of pain; denies SOB/ chest pain. able to dorsi flex/plantar flex, 2+ DP pulse and intact sensation
[2018-07-10] MEDS: Lactated Ringers 1000 ML Bag* 1,000 ML IV SCH (16:46)
[2018-07-10] MEDS: Acetaminophen TAB* 325 MG PO SCH ×2 (16:50→21:51)
[2018-07-10] MEDS: Atorvastatin* 10 MG TAB PO SCH (17:32)
[2018-07-10] MEDS: Insulin LISPRO* 1 UNITS UNIT SUBCUT SCH (17:32)
[2018-07-10] MEDS ORDERED: GLIMEPIRIDE 2 MG PO SCH (18:00)
[2018-07-10] MEDS ORDERED: Enoxaparin(*) 30 MG/0.3 ML SYR SUBCUT ONE (18:00)
[2018-07-10] MEDS: traMADol TAB* 50 MG PO PRN (18:37)
[2018-07-10] MEDS: ceFAZolin 1 GM in Dextrose (*) 1 GM/50 ML BAG IVPB SCH (19:47)
--- NOTE | 2018-07-10 19:52 | CONS ---
CC: Dr. Cabello; Dr. Sethi * CONSULTATION REPORT: DATE OF CONSULT: 07/10/18 PRIMARY CARE PROVIDER: Dr. Sethi. ATTENDING PHYSICIAN WHILE IN THE HOSPITAL: Dr. Amrita Barreto (report dictated by Gold Vicente NP) REQUESTING PHYSICIAN IN CONSULT: Dr. Cabello. REASON FOR CONSULT: Co-medical management in a patient with a history of diabetes, hypertension. HISTORY OF PRESENTING ILLNESS: I refer you to Dr. Cabello's H and P dictated for further details. In short, Ms. Melchor is a 68-year-old female patient. She carries a history of diabetes, hypertension, GERD, hyperlipidemia, allergic rhinitis, obesity, carpal tunnel syndrome, spinal stenosis, and osteoarthritis. She presents to Dr. Cabello's services for an elective left total knee. She had failed conservative therapy in the outpatient setting and it was felt that she would benefit from a total knee replacement today. She underwent this. The patient was evaluated postoperatively in the PACU. She says she is feeling well with the exception that she does feel tired. She says she is getting sensation back to her lower extremities. She denies having any chest pain or shortness of breath. She denies having any abdominal pain. She says she does not feel like she is going to faint and she denies having any nausea or vomiting. Because of her medical complexity, we were asked to evaluate in consult. PAST MEDICAL HISTORY: Significant for: 1. Osteoarthritis. 2. Spinal stenosis. 3. Carpal tunnel syndrome. 4. Diabetes. 5. Hypertension. 6. Hyperlipidemia. 7. Allergic rhinitis. 8. GERD. PAST SURGICAL HISTORY: Significant for: 1. Hysterectomy. 2. Carpal tunnel release. 3. Right hip arthroplasty. 4. Right total knee replacement. 5. Cataract extraction. 6. She had a left total knee done today. MEDICATIONS: Home meds according to the preoperative list include: 1. Simvastatin 20 mg p.o. q.a.m. 2. Omeprazole 40 mg p.o. q.a.m. 3. Multivitamin 1 tablet daily. 4. Lisinopril/hydrochlorothiazide 1 tablet p.o. daily. 5. Insulin 75/25, 30 units subcu q.a.m. 6. Insulin Lantus 40 units at bedtime. 7. Advil 800 mg p.o. twice a day as needed. 8. Glimepiride 1 tablet in the morning and 2 mg at bedtime. 9. Vitamin D3 2000 units p.o. daily. 10. Vitamin C 1000 mg p.o. q.a.m. 11. Norvasc 2.5 mg p.o. daily. ALLERGIES TO MEDICATIONS: Include WARFARIN, DOXYCYCLINE, INVOKANA, LEVAQUIN. FAMILY HISTORY: She said her mother of complications related to cancer. Father of complications related to an IN. SOCIAL HISTORY: She is a former smoker. Does not drink alcohol. Surrogate decision maker is her daughter, Chelsey. REVIEW OF SYSTEMS: There is no documented fever. She denied having any significant weight change. There is no double vision. She denies having any ear discharge. There is no rhinorrhea. There is no sore throat. No thyroid enlargement. She denied having any chest pain. There is no orthopnea. There is no nocturnal dyspnea. There was again no abdominal pain, no nausea, no vomiting. No dysuria, no frequency. No seizure, no loss of consciousness. No pruritus and no skin ulcerations. Review of 14 systems was completed, all others negative. PHYSICAL EXAM: Blood pressure 114/76 with a pulse of 80, respirations 20, O2 sat 98% on 3 L, temperature 97.3. General: At this time, Ms. Melchor is a 68- year-old female patient. She is sitting in the PACU bed. She does not appear to be in any acute distress. HEENT: Head: Atraumatic and normocephalic. Eyes : EOMs are intact. Sclerae anicteric and not pale. Neck was supple. Throat: Oral mucosa appears to be moist. No oropharyngeal erythema. Heart: Sounds S1, S2. Regular rate and rhythm. No murmurs, rubs, or gallops. Lungs: Clear to auscultation. No wheezes, rales, or rhonchi. Abdomen was soft, flat, nontender. Bowel sounds were present. Extremities: Pulses were 2+ throughout. She is able to move her toes on the lower extremities. She has sensation bilaterally. She cannot plantar or dorsiflex just yet. She had 5/5 strength in the upper extremities. Neurologically, she is awake, she is alert, she is oriented x3. Speech clear. Tongue midline. Cdl Flatbed Truck Driver were equal. She had no gross focal deficits. Skin is intact. She does have an incision to her left knee, which is covered with an Adrian dressing, which is clean, dry, and intact. DIAGNOSTIC STUDIES/LAB DATA: These are preop labs. WBC 8.9, RBC of 4.28, hemoglobin of 12.7, hematocrit of 38, platelet count of 284. INR of 0.88, PTT of 29.9. Sodium 137, chloride 104, bicarb 20, BUN 25, creatinine of 1.15, glucose 133. Urine preop showed 2+ bacteria, 2+ wbc's. Urine culture was negative. EKG preop shows a normal sinus rhythm, rate of 85. Preop chest x-ray showed COPD, question of nodular density at the left lung base , recommend evaluation with a CT chest, which she underwent, which showed emphysema. Old medical records were reviewed. ASSESSMENT AND PLAN: Ms. Melchor is a 68-year-old female patient with complex medical history, coming into the orthopedic services today for an elective left total knee. We were asked to evaluate in consult. Recommendations at this point are: 1. Status post left total knee. We will defer the management to Dr. Cabello and her team. 2. History of arthritis and spinal stenosis. Follow up with PCP. She has p.r.n. pain medications available. 3. Hyperlipidemia. Continue statin therapy. 4. Hypertension. In the setting of a spinal anesthetic, her blood pressure is running on the lower side. I am going to hold on giving her blood pressure meds. We will slowly reintroduce when able. 5. History of diabetes. We will put her on a sliding scale. Continue her Lantus. 6. Allergic rhinitis. Not an active issue. 7. DVT prophylaxis: Defer to the primary team. 8. Gastroesophageal reflux disease. Continue PPI therapy. 9. Fluids, electrolytes, and nutrition: I would recommend a consistent carb diet. 10. Code status: Full code. TIME SPENT: Time spent on the consult was 60 minutes, greater than half the time was spent [id number] with the patient obtaining my history and physical, other half time was spent going over the plan of care with the patient and implementing plan of care. I did discuss the plan of care with my attending, Dr. Barreto; she is in agreement. GOLD VICENTE, MEDICAL BILLING MANAGER [id number]/[facility] #: [id number] JL
[2018-07-10] MEDS: oxyCODONE TAB* 5 MG TAB PO PRN (20:19)
[2018-07-10] MEDS: Docusate CAP* 100 MG PO SCH (21:51)
[2018-07-10] MEDS: Magnesium Hydroxide LIQ* 30 ML UDC PO SCH (21:51)
[2018-07-10] MEDS: Insulin GLARGINE(*) 1 UNITS UNIT SUBCUT SCH (21:53)
[2018-07-10] MEDS ORDERED: Insulin LISPRO* 1 UNITS UNIT SUBCUT ONE (22:00)
[2018-07-10] MEDS: Morphine VIAL* 4 MG/ML VIAL (1 ml vial) IV PRN (22:04)
[2018-07-10] MEDS: Ondansetron INJ* 2 MG/ML VIAL IV PRN (23:17)
[2018-07-11] MEDS: oxyCODONE TAB* 5 MG TAB PO PRN ×6 (00:52→23:48)
[2018-07-11] MEDS: Lactated Ringers 1000 ML Bag* 1,000 ML IV SCH (02:02)
[2018-07-11] MEDS: ceFAZolin 1 GM in Dextrose (*) 1 GM/50 ML BAG IVPB SCH ×2 (04:54→11:35)
[2018-07-11 06:08] LABS: Hematocrit 33 % (35-47); Hemoglobin 11.1 g/dl (12.0-16.0); Mean Platelet Volume 7.6 fL (7.4-10.4); Platelet Count 260 10^3/ul (150-450)
[2018-07-11 06:19] LABS: INR 1.02 (0.77-1.02)
[2018-07-11] MEDS: Acetaminophen TAB* 325 MG PO SCH ×3 (06:22→22:34)
[2018-07-11 06:24] LABS: BUN/Creatinine Ratio 22.9 (8-20); Potassium 4.4 mmol/L (3.5-5.0)
[2018-07-11] MEDS: Docusate CAP* 100 MG PO SCH ×2 (08:11→19:34)
[2018-07-11] MEDS: Aspirin TAB* 325 MG PO SCH ×2 (08:11→19:34)
[2018-07-11] MEDS: Cyclobenzaprine TAB* 10 MG PO PRN ×2 (08:11→14:58)
[2018-07-11] MEDS: traMADol TAB* 50 MG PO PRN (08:12)
[2018-07-11] MEDS: Insulin LISPRO* 1 UNITS UNIT SUBCUT SCH ×3 (08:12→18:29)
[2018-07-11] MEDS: Omeprazole CAP (NF) 20 MG CAP.DR PO SCH (08:12)
[2018-07-11] MEDS: Magnesium Hydroxide LIQ* 30 ML UDC PO SCH ×2 (08:13→19:35)
[2018-07-11] MEDS ORDERED: GLIMEPIRIDE PO SCH (09:00)
[2018-07-11] MEDS ORDERED: INSULIN LISPRO PROTAMIN SQ SCH (09:00)
[2018-07-11] MEDS ORDERED: AMLODIPINE 2.5 MG TAB (NF) PO SCH (09:00)
[2018-07-11] MEDS ORDERED: Lisinopril/HCTZ 20/12.5(NF) TAB PO SCH (09:00)
[2018-07-11] MEDS ORDERED: LISPRO SQ SCH (09:00)
--- NOTE | 2018-07-11 10:49 | PN ---
Progress Note - Progress Note Date of Service: 07/11/18 SOAP: Subjective: []Patient seen OOB in chair, did well with PT today. Denies, SOB, CP, palpitations. Pain well managed. Hopes to go home tomorrow. Objective: [] Vital Signs Temp 97.9 F 07/11/18 07:17 Pulse 92 07/11/18 07:17 Resp 18 07/11/18 08:25 BP 135/90 07/11/18 07:17 Pulse Ox 97 07/11/18 08:00 Intake & Output 07/10/18 07/11/18 07/11/18 18:59 06:59 18:59 Intake Total 1850 1240 Output Total 100 425 0 Balance 1750 815 0 Weight 215 lb 3.2 oz Intake: IV Fluids 1850 980 LR 1700 980 NS 100ML, Cefazolin 2G 100 TXA 60MG IN 50ML NS 50 IVPB 110 ABX - CEFAZOLIN 110 Oral 150 Output: Anthony 100 425 0 Laboratory Results - last 24 hr 07/10/18 07/10/18 07/10/18 14:26 15:20 16:50 Hgb Hct Plt Count MPV INR (Anticoag Therapy) Sodium Potassium Chloride Carbon Dioxide Anion Gap BUN Creatinine Est GFR ( Amer) Est GFR (Non-Af Amer) BUN/Creatinine Ratio Glucose POC Glucose (mg/dL) 73 91 145 H Glucose Meter Confirm Calcium 07/10/18 07/10/18 07/11/18 20:24 20:36 05:44 Hgb 11.1 L Hct 33 L Plt Count 260 MPV 7.6 INR (Anticoag Therapy) Sodium Potassium Chloride Carbon Dioxide Anion Gap BUN Creatinine Est GFR ( Amer) Est GFR (Non-Af Amer) BUN/Creatinine Ratio Glucose POC Glucose (mg/dL) > 444 H* Glucose Meter Confirm 471 H Calcium 07/11/18 07/11/18 07/11/18 05:44 05:44 08:03 Hgb Hct Plt Count MPV INR (Anticoag Therapy) 1.02 Sodium 134 L Potassium 4.4 Chloride 102 Carbon Dioxide 23 Anion Gap 9 BUN 22 Creatinine 0.96 H Est GFR ( Amer) 70.1 Est GFR (Non-Af Amer) 58.0 BUN/Creatinine Ratio 22.9 H Glucose 297 H POC Glucose (mg/dL) 253 H Glucose Meter Confirm Calcium 9.0 Left knee dressings are dry and intact calf NT and soft + DF/PF left ankle sensation and circulation intact distally Assessment: []s/p LTK POD #1 Plan: []PT/OT WBAT LLE ASA 325 mg BID for DVT prophylaxis Home 07/12, outpatient PT, NO VNS Follow up 10-14 days as scheduled with Dr. Cabello
--- NOTE | 2018-07-11 15:08 | PN ---
Subjective Date of Service: 07/11/18 Interval History: Pt resting comfortably in chair, NAD. Say pain well controlled on current regimen. Tolerated PT well this morning. Eating and drinking, tolerating without nausea/vomiting. Pt did have some nausea last night with morphine administration, but has since resolved. Denies shortness of breath, chest pain, abdominal pain, numbness or tingling in extremities. Objective Active Medications: Acetaminophen (Tylenol Tab*) 975 mg PO Q8H [facility] Last Admin: 07/11/18 14:59 Dose: 975 mg Aspirin (Aspirin Tab*) 325 mg PO BID [facility] Last Admin: 07/11/18 08:11 Dose: 325 mg Atorvastatin Calcium (Lipitor*) 10 mg PO QPM [facility] Last Admin: 07/10/18 17:32 Dose: 10 mg Bisacodyl (Dulcolax Supp*) 10 mg [place] DAILY PRN PRN Reason: constipation Cyclobenzaprine HCl (Flexeril Tab*) 10 mg PO TID PRN PRN Reason: SPASMS Last Admin: 07/11/18 14:58 Dose: 10 mg Dextrose (D50w Syringe 50 Ml*) 12.5 gm IV PUSH .FOR FS < 60 - SS PRN PRN Reason: FS < 60 Diphenhydramine HCl (Benadryl Iv*) 25 mg IV Q6H PRN PRN Reason: itching Diphenhydramine HCl (Benadryl Po*) 25 mg PO Q6H PRN PRN Reason: INSOMNIA Docusate Sodium (Colace Cap*) 100 mg PO BID [facility] Last Admin: 07/11/18 08:11 Dose: 100 mg Lactated Ringer's (Lactated Ringers 1000 Ml Bag*) 1,000 mls @ 100 mls/hr IV PER RATE [facility] Last Admin: 07/11/18 02:02 Dose: 100 mls/hr Insulin Glargine (Lantus(*)) 40 units SUBCUT BEDTIME [facility] Last Admin: 07/10/18 21:53 Dose: 40 unit Insulin Human Isoph/Insulin Regular (Humulin 70/30 (*)) 10 units SUBCUT 0800 [facility] Insulin Human Lispro (Humalog*) 0 units SUBCUT AC [facility]; Protocol Last Admin: 07/11/18 13:10 Dose: 6 units Lactulose (Lactulose*) 30 ml PO Q6H PRN PRN Reason: constipation Magnesium Hydroxide (Milk Of Magnesia Liq*) 30 ml PO BID [facility] Last Admin: 07/11/18 08:13 Dose: Not Given Magnesium Hydroxide (Milk Of Magnesia Liq*) 30 ml PO Q6H PRN PRN Reason: constipation Morphine Sulfate (Morphine Vial*) 2 mg IV Q2H PRN PRN Reason: PAIN - SEVERE Last Admin: 07/10/18 22:04 Dose: 2 mg Omeprazole (Prilosec Cap*) 40 mg PO QAM [facility] Last Admin: 07/11/18 08:12 Dose: 40 mg Ondansetron HCl (Zofran Inj*) 4 mg IV Q6H PRN PRN Reason: nausea Last Admin: 07/10/18 23:17 Dose: 4 mg Oxycodone HCl (Roxycodone Tab*) 10 mg PO Q4H PRN PRN Reason: moderate to severe pain Last Admin: 07/11/18 11:35 Dose: 10 mg Oxycodone/Acetaminophen (Percocet 5/325 Tab*) 1 tab PO Q3H PRN PRN Reason: PAIN - MODERATE Last Admin: 07/10/18 16:45 Dose: 1 tab Polyethylene Glycol/Electrolytes (Miralax*) 17 gm PO DAILY PRN PRN Reason: Constipation Tramadol HCl (Ultram*) 50 mg PO Q6H PRN PRN Reason: PAIN Last Admin: 07/11/18 08:12 Dose: 50 mg Vital Signs - 8 hr 07/11/18 07/11/18 07/11/18 07:17 08:00 08:11 Temperature 97.9 F Pulse Rate 92 Respiratory 16 18 18 Rate Blood Pressure 135/90 (mmHg) O2 Sat by Pulse 97 97 Oximetry 07/11/18 07/11/18 07/11/18 08:12 08:25 10:39 Temperature Pulse Rate Respiratory 18 18 18 Rate Blood Pressure (mmHg) O2 Sat by Pulse Oximetry 07/11/18 07/11/18 07/11/18 10:50 11:16 11:35 Temperature 98.6 F Pulse Rate 86 Respiratory 18 16 18 Rate Blood Pressure 117/66 (mmHg) O2 Sat by Pulse 97 Oximetry 07/11/18 07/11/18 13:34 14:58 Temperature Pulse Rate Respiratory 18 18 Rate Blood Pressure (mmHg) O2 Sat by Pulse Oximetry Oxygen Devices in Use Now: None Eyes: No Scleral Icterus, PERRLA Ears/Nose/Mouth/Throat: NL Teeth, Lips, Gums, Clear Oropharnyx, Mucous Membranes Moist Neck: NL Appearance and Movements; NL JVP, Trachea Midline Respiratory: Symmetrical Chest Expansion and Respiratory Effort, Clear to Auscultation Cardiovascular: NL Sounds; No Murmurs; No JVD, RRR, No Edema Abdominal: NL Sounds; No Tenderness; No Distention Extremities: No Edema, No Clubbing, Cyanosis, - - 2+ DP and PT pulses. Able to dorsiflex and plantarflex. CSM intact to bilateral lower extremities. Skin: No Rash or Ulcers, No Nodules or Sclerosis Neurological: Alert and Oriented x 3, NL Sensation, NL Muscle Strength and Tone Lines/Tubes/Other Access: Clean, Dry and Intact Peripheral IV Result Diagrams: 07/11/18 05:44 07/11/18 05:44 Assess/Plan/Problems-Billing Assessment: 68 year old female with PMH DM, HTN, GERD, osteoarthritis, now s/p left total knee replacement with Dr. Cabello. POD 1 - Patient Problems (1) S/P total knee arthroplasty Current Visit: No Status: Acute Code(s): Z96.659 - PRESENCE OF UNSPECIFIED ARTIFICIAL KNEE JOINT SNOMED Code(s): 4236211858405 Comment: - Left total knee with Dr. Cabello, POD 1 - Plan per primary team, ortho for pain control, bowel regimen and anticoagulation - PT/OT - Trend H/H (2) Diabetes Current Visit: No Status: Acute Code(s): E11.9 - TYPE 2 DIABETES MELLITUS WITHOUT COMPLICATIONS SNOMED Code(s): 71851496 Comment: - Post op BG elevated to mid 200s today - Continue home lantus 40 mg at bedtime and lispro sliding scale. Will add 10 units Humalin 70/30 in the morning as well. (3) GERD (gastroesophageal reflux disease) Current Visit: No Status: Acute Code(s): K21.9 - GASTRO-ESOPHAGEAL REFLUX DISEASE WITHOUT ESOPHAGITIS SNOMED Code(s): 982226938 Comment: - Continue omeprazole (4) HTN (hypertension) Current Visit: No Status: Acute Code(s): I10 - ESSENTIAL (PRIMARY) HYPERTENSION SNOMED Code(s): 62916674 Comment: - Holding BP medications in the setting of post operative hypotension. SBP 130s-140s today. Resume home medications on discharge. (5) DVT prophylaxis Current Visit: No Status: Acute Code(s): XKV6402 - SNOMED Code(s): 321068645 Comment: - Aspirin BID per ortho (6) Full code status Current Visit: Yes Status: Acute Code(s): Z78.9 - OTHER SPECIFIED HEALTH STATUS SNOMED Code(s): 838765033 Status and Disposition: Plan per primary team, ortho. Likely d/c tomorrow. Attending: Amrita Barreto
[2018-07-11] MEDS: Ondansetron INJ* 2 MG/ML VIAL IV PRN (17:20)
[2018-07-11] MEDS: Atorvastatin* 10 MG TAB PO SCH (17:20)
[2018-07-11] MEDS: Morphine VIAL* 4 MG/ML VIAL (1 ml vial) IV PRN (17:23)
--- NOTE | 2018-07-11 20:19 | OP ---
OPERATIVE REPORT: DATE OF OPERATION: 07/10/18 DATE OF : 52 SURGEON: Aby Cabello MD BIOMETRY TEACHER: MANUEL Ramos Ms. Ramirez did help throughout the procedure with preparation of the leg, wound retraction, manipulat ion of the knee, and wound closure. ANESTHESIOLOGIST: Dr. Savage. ANESTHESIA: Spinal. PRE-OP DIAGNOSIS: Severe end-stage degenerative osteoarthritis of the left knee joint with valgus de formity. POST-OP DIAGNOSIS: Severe end-stage degenerative osteoarthritis of the left knee joint with valgus d eformity. OPERATIVE PROCEDURE: Left total knee arthroplasty. INDICATIONS: Ms. Melchor is a 68-year-old female with years of increasingly severe left knee pain and valgus deformity. Radiographs showed [id number] arthritis. She failed conservative treatment with anti-inflammatories, pain medication, intra- articular injection, and physical therapy. Due to willy nued pain and decreased quality of life, she elected to undergo left total knee arthroplasty. Inform ed consent was obtained from the patient. She understood the risks of surgery included, but were not limited to, bleeding, infection, damage to nearby structures, continued pain, need for further surge ry, intraoperative fracture, nerve palsy, hardware failure or loosening, knee stiffness, loss of ankit on, stroke, heart attack, blood clot, and . She wished to proceed. TOURNIQUET TIME: 47 minutes. COMPLICATIONS: None. ESTIMATED BLOOD LOSS: 200 cc. SPECIMEN: Bone and cartilage from the left knee joint sent to Pathology. HARDWARE: This is cemented total knee arthroplasty hardware from [employer]. For the femur, a left size 5 Narrow Oxinium legion posterior stabilized femoral component. For the tibia, a left size 4, Alana II tibial blase plate. For the insert, a 9-mm posterior stabilized articular insert, size 3-4. For the patella, a 32-mm 3 peg all poly patella with 7.5 thickness. INTRAOPERATIVE FINDINGS: Intraoperatively, the patient was noted to have severe valgus deformity of 15 degrees at the start of the case. This was corrected to 5 degrees of anatomic valgus by the end o f the case. She had lateral femoral condylar hypoplasia. She had tricompartmental full-thickness lo ss of cartilage. DESCRIPTION OF PROCEDURE: Ms. Melchor was identified in the preanesthesia unit. Her left lower extrem ity was marked as the correct operative side. Informed consent was signed and placed in the chart. The patient was taken to the operating room and placed under spinal anesthesia without difficulty. A Anthony catheter was placed. A tourniquet was placed on the left thigh. Left lower extremity was pre pped and draped in the usual sterile fashion. Preop time-out was made to correctly identify the manuel ent, side, and site. Appropriate perioperative antibiotics were given within 1 hour of incision. Tourniquet was inflated and total tourniquet time for this procedure was 47 minutes. A midline incis ion was made with a 10 blade and carried down to the extensor mechanism. A new 10 blade was used to make a standard medial parapatellar arthrotomy. The patella was subluxed laterally. Electrocautery was used to subperiosteally elevate soft tissue off the superomedial tibia to the mid sagittal plane. The knee was flexed up. The anterior horn of the lateral meniscus and ACL were sharply released. A drill was used to enter the distal femur. Intramedullary distal femoral cutting guide was pinned o n the distal femur. Oscillating saw was used to make the distal femoral cut. Next, the external rot ation guide was pinned on the distal femur. The distal femur was sized to a size 5. A size 5 multi- cutting jig was pinned on the distal femur. Oscillating saw was used to make the appropriate 4 alexis kirk cuts. The PCL was completely released. The extramedullary tibial cutting guide was pinned on the proximal tibia. Oscillating saw was used to make the proximal tibial cut perpendicular to the mechanical axis of the tibia. The bone was carefully removed. The knee was brought out into the full extension. T here was some tightness laterally. Electrocautery was used to release the capsule along the posterol ateral tibia. Conservative pie crusting was performed with the lateral ligaments. This improved the medial and lateral ligamentous balancing. Flexion and extension gaps were well balanced. The knee was in full extension with good spacer block placement. The knee was flexed up. Lamina scada technician was placed both medially and laterally. Any remaining meniscus was carefully removed using electrocaute ry. Curved osteotome was used to remove posterior osteophytes. Tibial tray and drop mildred were placed and confirmed a satisfactory tibial cut. A size 5 Narrow left f emoral trial was impacted on to the distal femur and had excellent fit and stability. The box for th e posterior stabilized implant was prepared using a reamer and box cut osteotome. A size 4 tibial tr ay trial with a 9- mm insert trial was placed and the knee was taken through range of motion. The kn ee had full extension to 130 degrees of flexion. There was satisfactory patellofemoral tracking. The patella was everted. 7 mm of patellar bone and cartilage was carefully removed using an oscillat ing saw. The patella was sized to a size 32. Three peg holes were drilled through the size 32 guide . The 32 trial patella with 7.5 thickness was chosen and placed on patella. The knee was taken thro [facility] a range of motion and there was satisfactory patellofemoral tracking. All trials were removed. The tibia was subluxed anteriorly and sized to a size 4. Proximal tibia was prepared using a size 4 keel punch. All bony cut surfaces were copiously irrigated with sterile za ine and dried. Final implants were cemented into place starting with the tibia, followed by the femu r and lastly the patella. A 9-mm insert trial was placed and the knee was taken out into the full ext ension. Tourniquet was turned down at 47 minutes. Electrocautery was used to obtain meticulous hemostasis. The knee was copiously irrigated with steri le saline. Once the cement had fully cured, the insert trial was removed. Any excess cement was rem jose from around the capsule and hardware. Final insert chosen was a 9-mm posterior stabilized articu lar insert, size 3-4. This was locked into position on the tibial tray without difficulty. The knee was once again copiously irrigated with sterile saline. The extensor mechanism was closed u sing interrupted #1 Vicryls. The rest of the incision was closed in a layered fashion using 0 and 2- 0 Vicryls. The skin was closed using running 3-0 nylon suture. Sterile Xeroform, 4x4s, and Webril w ere used to cover the incision. Adrian wrap and cold pack were placed over this. The patient's anesthesia was reversed without difficulty. She was taken to the PACU in stable condit ion. Intended weightbearing will be weightbearing as tolerated. Intended DVT prophylaxis will be Co umadin with a Lovenox bridge. [id number]/[facility] #: [id number]
[2018-07-11] MEDS: Insulin GLARGINE(*) 1 UNITS UNIT SUBCUT SCH (22:35)
[2018-07-12] MEDS: oxyCODONE TAB* 5 MG TAB PO PRN ×3 (03:48→12:11)
[2018-07-12 05:54] LABS: Hematocrit 30 % (35-47); Hemoglobin 10.5 g/dl (12.0-16.0); Mean Platelet Volume 7.7 fL (7.4-10.4); Platelet Count 218 10^3/ul (150-450)
[2018-07-12 05:59] LABS: INR 1.02 (0.77-1.02)
--- NOTE | 2018-07-12 07:36 | PN ---
Progress Note - Progress Note Date of Service: 07/12/18 SOAP: Subjective: resting comfortably in bed with minimal complaints of pain Objective: Vital Signs Temp Pulse Resp BP Pulse Ox 98.6 F 105 16 146/79 91 07/12/18 03:51 07/12/18 03:51 07/12/18 07:01 07/12/18 03:51 07/12/18 03:51 Laboratory Last Values Hgb 10.5 g/dl (12.0-16.0) L 07/12/18 05:06 Hct 30 % (35-47) L 07/12/18 05:06 Plt Count 218 10^3/ul (150-450) 07/12/18 05:06 MPV 7.7 fL (7.4-10.4) 07/12/18 05:06 INR (Anticoag Therapy) 1.02 (0.77-1.02) 07/12/18 05:06 Sodium 134 mmol/L (135-145) L 07/11/18 05:44 Potassium 4.4 mmol/L (3.5-5.0) 07/11/18 05:44 Chloride 102 mmol/L (101-111) 07/11/18 05:44 Carbon Dioxide 23 mmol/L (22-32) 07/11/18 05:44 Anion Gap 9 mmol/L (2-11) 07/11/18 05:44 BUN 22 mg/dL (6-24) 07/11/18 05:44 Creatinine 0.96 mg/dL (0.51-0.95) H 07/11/18 05:44 Est GFR ( Amer) 70.1 (>60) 07/11/18 05:44 Est GFR (Non-Af Amer) 58.0 (>60) 07/11/18 05:44 BUN/Creatinine Ratio 22.9 (8-20) H 07/11/18 05:44 Glucose 297 mg/dL (70-100) H 07/11/18 05:44 POC Glucose (mg/dL) 307 mg/dL (70-100) H 07/11/18 22:39 Glucose Meter Confirm 471 mg/dL (70-100) H 07/10/18 20:36 Calcium 9.0 mg/dL (8.6-10.3) 07/11/18 05:44 incision: c/d; dressing changed PE: NVI Assessment: s/p left TKA; POD #2 Plan: 1)ASA 325MG BID for DVT prophylaxis 2) Home today; F/U with Dr. Cabello in 2 weeks
[2018-07-12] MEDS: Acetaminophen TAB* 325 MG PO SCH (07:40)
[2018-07-12] MEDS ORDERED: Insulin ISOPH/REG 70/30 (*) 1 UNITS UNIT SUBCUT SCH (08:00)
[2018-07-12] MEDS: Docusate CAP* 100 MG PO SCH (08:50)
[2018-07-12] MEDS: Omeprazole CAP (NF) 20 MG CAP.DR PO SCH (08:50)
[2018-07-12] MEDS: Aspirin TAB* 325 MG PO SCH (08:50)
[2018-07-12] MEDS: Insulin LISPRO* 1 UNITS UNIT SUBCUT SCH ×2 (08:51→13:13)
[2018-07-12] MEDS: Magnesium Hydroxide LIQ* 30 ML UDC PO SCH (08:54)
[2018-07-12 15:19] VITALS: BP 141/75
--- NOTE | 2018-07-13 00:05 | DS ---
AMENDED REPORT NOW INCLUDES COSIGNER DESIGNATION DISCHARGE SUMMARY: DATE OF ADMISSION: 07/10/18 DATE OF DISCHARGE: 07/12/18 ATTENDING PROVIDER: Dr. Cabello * (DICTATED BY MANUEL GODOY) PRINCIPAL DIAGNOSIS: End-stage osteoarthritis of the left knee. DISCHARGE DIAGNOSIS: End-stage osteoarthritis of the left knee. HISTORY OF PRESENT ILLNESS: Ms. Melchor is a 68-year-old female with end-stage osteoarthritis of the left knee. She failed conservative treatment and elected to proceed with a left total knee arthroplasty. HOSPITAL COURSE: Ms. Melchor was admitted electively to the hospital on 07/10/18 and underwent a left total knee arthroplasty. Postoperatively, she was placed on aspirin 325 twice a day for DVT prophylaxis. Her hospital course is unremarkable. On postoperative day #1, her H and H was 11 and 33. On postoperative day #2 10 and 30. Her vital signs remained stable and she was doing well with physical therapy and voiding with aid of a walker. DISCHARGE MEDICATIONS: 1. Percocet 5/325 one to two tabs every 4 to 6 hours for pain. 2. Aspirin 325 twice daily for 4 weeks. 3. Colace 100 mg 2 to 3 times daily for constipation. 4. Flexeril 10 mg 2 to 3 times a day for spasms. 5. Lipitor 10 mg daily. 6. Insulin Homolog. 7. Omeprazole 40 mg daily. PHYSICAL EXAM UPON DISCHARGE: She is afebrile. Her vital signs are stable. Her wound was clean and dry. She has no signs of infection. She has a 2+ dorsalis pedis pulse. She is able to dorsiflex and plantar flex and able to straight leg raise. She is ambulating with the aid of a walker. DISCHARGE DISPOSITION: She is discharged to home in stable condition. DISCHARGE INSTRUCTIONS: She was given prescription of Percocet to take every 4 to 6 hours for pain, Colace for constipation, Flexeril for muscle spasms, and aspirin 325 to take twice daily for DVT prophylaxis for 4 weeks. She can shower when she gets home; however, she cannot submerge the leg in water. She will start outpatient physical therapy as soon as possible. The prescription was provided. She will follow up with Dr. Cabello in 2 weeks for suture removal. We have asked her to call our office sooner with any questions or concerns. MANUEL GODOY [id number]/[facility] #: [id number] [facility] HOSPITALSaman
== END 2018-07-12 12:45 | disposition home or self-care (01) | DRG 470 ==
LOC: SSU 07-10 14:24
PROVIDERS: ADMIT Orthopaedic Surgery Adult Reconstructive Orthopaedic Surgery; ATTEND Internal Medicine
PROC: 0SRD069 Replacement of Left Knee Joint with Oxidized Zirconium on Polyethylene Synthetic Substitute, Cemented, Open Approach (ICD-10-PCS; principal; 2018-07-10 12:00)
DX: M17.12 Unilateral primary osteoarthritis, left knee (principal); I10 Essential (primary) hypertension; E11.9 Type 2 diabetes mellitus without complications; K21.9 Gastro-esophageal reflux disease without esophagitis; Z96.641 Presence of right artificial hip joint; Z96.651 Presence of right artificial knee joint; M25.462 Effusion, left knee; M21.062 Valgus deformity, not elsewhere classified, left knee; M43.10 Spondylolisthesis, site unspecified; M16.10 Unilateral primary osteoarthritis, unspecified hip; J44.9 Chronic obstructive pulmonary disease, unspecified; K57.90 Diverticulosis of intestine, part unspecified, without perforation or abscess without bleeding; E78.5 Hyperlipidemia, unspecified; M48.061 Spinal stenosis, lumbar region without neurogenic claudication; M54.32 Sciatica, left side; M25.762 Osteophyte, left knee; J30.9 Allergic rhinitis, unspecified; E66.9 Obesity, unspecified; R11.0 Nausea; I95.81 Postprocedural hypotension; Z68.34 Body mass index [BMI] 34.0-34.9, adult; Z88.1 Allergy status to other antibiotic agents; Z88.5 Allergy status to narcotic agent; Z88.8 Allergy status to other drugs, medicaments and biological substances; Z90.710 Acquired absence of both cervix and uterus; Z83.3 Family history of diabetes mellitus; Z98.49 Cataract extraction status, unspecified eye; Z82.49 Family history of ischemic heart disease and other diseases of the circulatory system; Z80.9 Family history of malignant neoplasm, unspecified; Z79.4 Long term (current) use of insulin; Z87.891 Personal history of nicotine dependence; Z85.038 Personal history of other malignant neoplasm of large intestine
CPT/HCPCS: 36415; 80048; 82947; 85014; 85018; 85049; 85610; 88305; 88311; A9270-GY; C1776; J0690; J1100; J1650; J2250; J2270; J2405; J2704; J2795; J3010

== ENCOUNTER 2019-07-02 06:05 | Observation (INO) | payer OTHER ==
--- NOTE | 2019-06-22 10:19 | HP ---
HISTORY AND PHYSICAL: DATE OF SURGERY: 07/02/19 DATE OF OFFICE VISIT: 06/19/19 SURGEON: Aby Cabello MD * (DICTATED BY MANUEL GODOY) PROCEDURE: Left total hip arthroplasty. CHIEF COMPLAINT: Left hip pain. HISTORY OF PRESENT ILLNESS: Ms. Melchor is a 69-year-old female with continued complaints of left hip pain. She has failed conservative treatment and elected to proceed with a left total hip arthroplasty. PAST MEDICAL HISTORY: Hypertension, high cholesterol, diabetes, and GERD. PAST SURGICAL HISTORY: Hysterectomy, carpal tunnel release, right total hip arthroplasty, bilateral total knee arthroplasties, and cataract removal. CURRENT MEDICATIONS: 1. Lisinopril/hydrochlorothiazide 20/12.5 mg daily. 2. Glimepiride 2 mg 1 tab in the morning, 2 tabs at night. 3. Omeprazole 40 mg a day. 4. Simvastatin 20 mg a day. 5. Lantus. 6. Humalog. 7. Multivitamin. 8. Amlodipine 2.5 mg daily. 9. Vitamin C. 10. Vitamin D. 11. Advil as needed. ALLERGIES: To DOXYCYCLINE, LEVAQUIN, CODEINE, INVOKANA, and WARFARIN. FAMILY HISTORY: Diabetes, cancer, and stroke. SOCIAL HISTORY: She is a 69-year-old female. She lives with her daughter. She does not smoke or use drugs. REVIEW OF SYSTEMS: A complete 14-point review of systems was reviewed with the patient. It was positive for diabetes and GERD. She denies history of DVT, PE , hepatitis, HIV, or anesthesia problems. PHYSICAL EXAMINATION GENERAL: She is well developed, well nourished, in no acute distress. VITAL SIGNS: She stands 67 inches tall, weighs 225 pounds. Her blood pressure is 128/72, her heart rate is 89. HEENT: Normocephalic, atraumatic. NECK: Supple. No palpable lymph nodes. PULMONARY: Lungs are clear to auscultation bilaterally. CARDIO: Regular rate and rhythm. Strong S1, S2. ABDOMEN: Soft, nontender, nondistended. MUSCULOSKELETAL: Left lower extremity: The skin is intact. There are no open wounds or abrasions. She walks with an antalgic type gait favoring her left hip. She has 9 degrees of hip flexion. She lacks 5 degrees from neutral and has no internal rotation, 20 degrees of external rotation all reproducing severe groin pain. She has a 2+ dorsalis pedis pulse and intact sensation. She is able to dorsiflex and plantar flex. NEUROLOGICAL: She is alert and oriented x3. ASSESSMENT AND PLAN: Ms. Melchor is a 69-year-old female with severe end-stage osteoarthritis of the left hip. She has failed conservative treatment and elected to proceed with a left total hip arthroplasty. The surgery is scheduled for 07/02/[address] Cabello. The risks and benefits of the surgery were discussed at today's visit and all of her questions were answered. She will follow up with Dr. Cabello 2 weeks after the surgery. MANUEL GODOY [id number]/[facility] #: [id number] MTDD
[~2019-07-02 06:05] MED LIST changes: +Acetaminophen TAB* 325 MG PO ONE; -Buffered Lidocaine 1% SYR 3ML* 3 ML/SYR SYRINGE INTRADERM ONE; +Buffered Lidocaine 1% SYRIN* 1 ML/SYRINGE INTRADERM ONE; +DiMENhydriNATE IV* 50 MG/ML VIAL IV PUSH ONE; -DiMENhydriNATE IV* 50 MG/ML VIAL IV PUSH PRN; -DiMENhydriNATE IV* 50 MG/ML VIAL ONE; -Famotidine IV* 10 MG/ML 2 ML (20 mg) ONE; +Gabapentin CAP(*) 300 MG PO ONE; +HYDROmorphone INJ1* 1 MG/ML SYRINGE IV PRN; -HYDROmorphone* 1 MG/ML 1 ML SYR ONE; +Lactated Ringers 1000 ML Bag* 1,000 ML IV SCH; -Metoclopramide IV* 5 MG/ML 2 ML VIAL IV SLOW PU ONE; -Metoclopramide IV* 5 MG/ML 2 ML VIAL ONE; -Midazolam* 1 MG/ML 5 ML VIAL (5 MG) ONE; -Morphine PF AMP (0.5MG/ML)* 5 MG/10 ML AMP ONE; +Naloxone* 0.4 MG/ML 1 ML VIAL IV PRN; -Ondansetron INJ* 2 MG/ML VIAL IV PRN; +Ondansetron ODT TAB* 4 MG PO ONE; +Scopolamine 1.5 mg* PATCH TRANSDERM PRN; -ceFAZolin 2 GM PREMIX(*) 2 GM/50 ML BAG IVPB ONE; +celeCOXIB CAP* 200 MG PO ONE; -fentaNYL* 50 MCG/ML 2 ML VIAL (100 MCG VIAL) IV PRN; -fentaNYL* 50 MCG/ML 5 ML VIAL (250 MCG VIAL) ONE
[2019-07-02] MEDS ORDERED: Tranexamic Acid 1,000 MG in NS 0.9% 50 ML IV ONE (07:00)
[2019-07-02] MEDS ORDERED: DiMENhydriNATE IV* 50 MG/ML VIAL ONE (07:02)
[2019-07-02] MEDS ORDERED: Ondansetron ODT TAB* 4 MG ONE (07:03)
[2019-07-02] MEDS ORDERED: Acetaminophen TAB* 325 MG ONE (07:03)
[2019-07-02] MEDS ORDERED: celeCOXIB CAP* 200 MG ONE (07:03)
[2019-07-02] MEDS ORDERED: ceFAZolin 2 GM in NS PREMIX(*) 2 GM/100 ML BAG IVPB ONE (07:04)
[2019-07-02] MEDS ORDERED: Famotidine IV* 10 MG/ML 2 ML (20 mg) ONE (07:04)
[2019-07-02] MEDS ORDERED: Bupivacaine 0.5%* 50 ML MDV VIAL ONE (07:26)
[2019-07-02] MEDS ORDERED: Gabapentin CAP(*) 300 MG ONE (07:30)
[2019-07-02] MEDS ORDERED: fentaNYL* 50 MCG/ML 2 ML VIAL (100 MCG VIAL) ONE ×2 (07:32→11:59)
[2019-07-02] MEDS ORDERED: Rocuronium* 10 MG/ML VIAL ONE (07:32)
[2019-07-02] MEDS ORDERED: Midazolam* 1 MG/ML 5 ML VIAL (5 MG) ONE (07:32)
[2019-07-02] MEDS ORDERED: KETAMINE HCL* 50 MG/ML 10 ML VIAL ONE (07:32)
[2019-07-02] MEDS ORDERED: EPHEDrine (Pressors)* 50 MG/ML VIAL ONE (08:43)
[2019-07-02] MEDS ORDERED: PROCHLORPERAZINE INJ 5 MG/ML 2 ML VIAL ONE (08:43)
[2019-07-02] MEDS ORDERED: Propofol* 10 MG/ML 20 ML BTL ONE (08:43)
[2019-07-02] MEDS ORDERED: Lidocaine 2% PF * 5 ML VIAL ONE (08:44)
[2019-07-02] MEDS ORDERED: HYDROmorphone INJ1* 1 MG/ML SYRINGE ONE ×2 (08:45→10:09)
[2019-07-02] MEDS ORDERED: Labetalol IV* 5 MG/ML 20 ML VIAL ONE (09:00)
[2019-07-02] MEDS ORDERED: Magnesium Hydroxide LIQ* 30 ML UDC PO PRN (10:45)
[2019-07-02] MEDS ORDERED: Acetaminophen TAB* 325 MG PO PRN (10:45)
[2019-07-02] MEDS ORDERED: Morphine INJ* 2 MG/ML 1 ML SYRINGE (TWO MG - NEW SYRINGE VERSION) IV PRN (10:45)
[2019-07-02] MEDS ORDERED: oxyCODONE/Acetamin 5/325 MG* TAB PO PRN (10:45)
[2019-07-02] MEDS ORDERED: diPHENhydraMINE PO* 25 MG PO PRN (10:45)
[2019-07-02] MEDS ORDERED: Ondansetron ODT TAB* 4 MG PO PRN (10:45)
[2019-07-02] MEDS ORDERED: diPHENhydraMINE IV* 50 MG/ML 1 ml VIAL (BENADRYL) IV PRN (10:45)
[2019-07-02] MEDS ORDERED: Dextrose 50% VIAL 50 ml IV PUSH PRN (11:54)
[2019-07-02] MEDS: fentaNYL* 50 MCG/ML 2 ML VIAL (100 MCG VIAL) IV PRN ×3 (12:02→12:52)
[2019-07-02] MEDS: oxyCODONE TAB* 5 MG TAB PO PRN ×3 (12:23→16:45)
[2019-07-02] MEDS ORDERED: oxyCODONE TAB* 5 MG TAB ONE (12:23)
--- NOTE | 2019-07-02 12:34 | CONS ---
HOSPITAL MEDICINE CONSULTATION REPORT: DATE OF CONSULT: 07/02/19 PROVIDER: Tiffanie Alcocer NP. ATTENDING PHYSICIAN: Dr. Aby Cabello. CONSULTING PHYSICIAN: Dr. Chyna Dorman (dictated by Tiffanie Alcocer NP). REASON FOR CONSULT: Co-management of chronic medical conditions. HISTORY OF PRESENT ILLNESS: Ms. Melchor is a 69-year-old female with a past medical history significant for hypertension, hyperlipidemia, diabetes type 2, and GERD, who presented to [facility] for an elective left total hip arthroplasty with Dr. Cabello. Please see dictated H and P from MANUEL Mulligan, for complete details. In brief, the patient had ongoing pain and failed conservative measures; therefore, opted to proceed with a total left hip arthroplasty with Dr. Cabello. In the immediate postoperative period, the patient has no complaints. She denies any chest pain. She denies any fever, chills. Denies any nausea, vomiting, abdominal pain. Denies any shortness of breath, cough, or hemoptysis. She denies any urinary frequency, urgency, or pain with urination. She denies any abdominal pain. She denies any weakness or sensory loss. Denies any visual complaints, dysphagia, arthralgias, or myalgias. Due to her history of hypertension and diabetes, Hospital Medicine was asked to consult and help co-manage her care during this hospitalization. PAST MEDICAL HISTORY: Significant for: 1. Hypertension. 2. Hyperlipidemia. 3. Diabetes. 4. GERD. PAST SURGICAL HISTORY: 1. Hysterectomy. 2. Carpal tunnel. 3. Right total hip arthroplasty. 4. Bilateral knee surgery. 5. Cataracts. HOME MEDICATIONS: Include: 1. Lisinopril/hydrochlorothiazide 20/12.5. 2. Omeprazole 20 mg p.o. daily. 3. Multivitamin 1 tab p.o. daily. 4. Ibuprofen 800 mg b.i.d. p.r.n. 5. Vitamin C 1000 mg p.o. daily. 6. Amlodipine 2.5 mg p.o. daily. 7. Simvastatin 20 mg p.o. daily. 8. Glimepiride 1 tablet in the a.m., 4 mg in the p.m. 9. Lantus 50 units at bedtime. 10. Humalog 75/25, 30 units in the a.m. ALLERGIES: 1. DOXYCYCLINE. 2. LEVAQUIN. 3. CODEINE. 4. INVOKANA. 5. WARFARIN. FAMILY HISTORY: No reported history of coronary artery disease or diabetes. Mother with unknown type of cancer that was metastatic, at the age of 42. SOCIAL HISTORY: The patient lives with her daughter. She denies any tobacco or illicit drug use. She denies any alcohol use. Surrogate decision maker in the event she is unable to make her own decision is her daughter. She is a full code. REVIEW OF SYSTEMS: A 14-point review of systems was completed. All pertinent positives were mentioned in the HPI. PHYSICAL EXAM: General: At this time, Ms. Melchor is a 69-year-old female. She is resting comfortably on the bed in the PACU. She is drowsy from anesthesia. Vital Signs: Blood pressure is 151/92, heart rate 94, respirations 16, O2 saturation 95%, temperature was 97.9. HEENT: Head is atraumatic, normocephalic. Eyes: EOMs are intact. Sclerae anicteric and not pale. Oral mucosa appeared to be moist. Neck is supple. Lungs are clear to auscultation bilaterally. No wheezes, rales, or rhonchi. Cardiac: S1, S2. Regular rate and rhythm. No murmurs, rubs, or gallops. Abdomen is soft and nontender. Bowel sounds are present x4. Extremities: There is no clubbing or cyanosis. Pedal pulses are +2 bilaterally. Radial pulses are +2 bilaterally. Neurologic: She is drowsy. She is alert and oriented. She does answer questions appropriately. There are no gross focal deficits. Her speech is clear. Skin: She does have a dressing that is dry and intact to her left hip. LABORATORY DATA: She had a CBC from 06/22/19: WBCs were 11.2, RBCs 4.65, hemoglobin 14.0, hematocrit 41, and platelet count 321. She had an INR on 06/22 which was 0.99, APTT was 37.1. She had a CMP on 06/22/19: Sodium 137, potassium 4.2, chloride 103, carbon dioxide was 23, anion gap was 11, BUN was 32 , creatinine 1.06. ASTs were 30, ALTs were 34, alkaline phosphatase was 77. Urine was from 06/22/19; wbc's were 2+, squamous epithelial cells were present, bacteria was 2+, ascorbic acid was positive, otherwise was within normal limits. IMPRESSION AND PLAN: Ms. Melchor is a 69-year-old female, who presented to [facility] for an elective left total hip arthroplasty with Dr. Cabello. In the immediate postoperative period, the patient has no complaints. Our recommendations are as follows: 1. Status post left total hip arthroplasty. Management per Orthopedics. PT/ OT per Orthopedics. Bowel regimen per Orthopedics. Pain management per Orthopedics. DVT prophylaxis per Orthopedics. 2. Hypertension. I would hold her hydrochlorothiazide and lisinopril. She can continue on amlodipine and resume lisinopril as her blood pressure allows. She can resume her hydrochlorothiazide at discharge. 3. Type 2 diabetes. I would hold her glimepiride and Humalog. Continue her Lantus at half dose this evening and place her on fingersticks a.c. and h.s. with lispro sliding scale. 4. FEN: She can have a consistent carbohydrate diet. 5. Code status: She is a full code. 6. DVT prophylaxis: As per Orthopedics. TIME SPENT: Time spent on this consultation was 45 minutes, greater than half that time was spent at the bedside reviewing the events leading thus far to her hospitalization, performing physical exam, and reviewing my plan of care. I have discussed this with my attending, Dr. Chyna Dorman; she is in agreement with my plan. TIFFANIE ALCOCER, MATY [id number]/[facility] #: [id number] JL
--- NOTE | 2019-07-02 13:17 | PN ---
Progress Note - Progress Note Date of Service: 07/02/19 Note: resting comfortably in bed; pain well controlled; able to DF/PF, 2+ DP pulse and intact sensation
[2019-07-02] MEDS: Lactated Ringers 1000 ML Bag* 1,000 ML IV SCH (13:38)
[2019-07-02] MEDS: Ondansetron INJ* 2 MG/ML VIAL IV PRN ×2 (13:54→23:00)
[2019-07-02] MEDS: ceFAZolin 1 GM ADVAN(*) 1 GM in NS 0.9% 50 ML* 50 ML IVPB SCH (16:37)
--- NOTE | 2019-07-02 17:03 | OP ---
Operative Report - Blank - Operative Report Date of Operation: 07/02/19 Note: MARK MOON 1950 Date Of Surgery: 07/02/19 Aby Cabello MD Bomb Squad Officer: Kan JACKSON did help throughout the procedure with preparation of the hip, wound retraction, manipulation of the hip, and wound closure. Anesthesiologist: Che Conn MD Anesthesia Type: Spinal Preoperative Diagnosis: Left severe degenerative osteoarthritis of the hip Postoperative Diagnosis: As above Procedure Performed: Left Total Hip Arthroplasty with abductor tendon repair Complications: None Specimen: Femoral head and acetabular reamings sent to pathology. Hardware used: This is uncemented Ananda total hip arthroplasty hardware for the femur a size 7 accolade II with 127 neck angle femoral component, for the acetabulum a size 52E trident II tritanium cluster hole shell, one 20mm screw, for the insert a size 42E cementless MDM liner insert, and for the femoral head a size 28 - 4 ceramic V40 femoral head with 28/48/42E MDM X3 insert. Brief history/Indication: MARK MOON was known in clinic and had a history of severe left hip pain. She failed conservative treatment with anti- inflammatories, pain pills, intra-articular injections and physical therapy. She elected to undergo left total hip arthroplasty due to continued pain and decreased quality of life. Radiographs showed severe end stage osteoarthritis of the hip with bone on bone contact. Informed consent was obtained from the patient. She understood the risks of surgery included but were not limited to: bleeding, infection, damage to nearby structures, intraoperative fracture, nerve palsy, failure of the hardware, early loosening, stiffness or loss of motion, dislocation, leg length discrepancy, anesthesia complications, stroke, heart attack, blood clot and . She wished to proceed. Intra-Operative findings: Intraoperatively the patient was noted to have severe loss of cartilage of the acetabulum and femoral head. She had a large partial tear of her abductor tendons from the greater trochanter. Description of the Procedure: MARK MOON was identified in the preanesthesia unit. Her left hip was marked as the correct operative side. Informed consent was signed and placed in the chart. The patient was taken to the operating room and placed under anesthesia without complication. A lewis catheter was placed. The patient was placed on the peg board with all bony prominences well padded. The left lower extremity was prepped and draped in the usual sterile fashion. Preoperative time-out was made to correctly identify the patient, side and site. Appropriate intraoperative antibiotics were given within one hour of incision. A standard posterior incision was made and carried sharply down to the lateral fascia. A new 10 blade was used to make an incision in the fascia in line with the skin incision. A charnley retractor was placed. The piriformis and conjoined tendons were identified and elevated off the posterolateral femur using electrocautery. These were tagged with number 5 Ethibond. Next electrocautery was used to make a posterolateral capsular flap and this was tagged with number 5 Ethibonds. The hip was carefully dislocated. Lesser trochanter to the center of the femoral head was measured at 55 mm. The oscillating saw was used to make the femoral neck cut. The femoral head was carefully removed. The femur was retracted anteriorly and the acetabular retractors were placed. Long-handled knife was used to sharply remove any remaining labrum from the acetabular rim. The acetabulum was sequentially reamed up to a size 52. A bleeding subchondral bone bed was obtained. A trial liner was placed and had excellent fit and stability. A 52E cup with a 20mm screw was placed and had excellent stability with appropriate anteversion and abduction angle. A size 42E MDM liner was impacted into the acetabular shell. The liner was checked for stability and was stable. Next attention was turned to preparation of the femoral canal. A canal finder was used to enter the proximal femur. The femoral canal was sequentially broached up to a size 7 femoral broach trial. A trial neck and 28 - 4 trial femoral head was chosen. Lesser trochanter to center of the femoral head measurement was satisfactory. The hip was reduced and taken through a range of motion. The hip was stable in all positions with good soft tissue tension and appropriate leg lengths. The hip was dislocated and all trials were removed. The final implant chosen was a accolade II size 7. This stem was impacted into the femoral canal without difficulty. The stem was stable with appropriate anteversion. The femoral head chosen was a 28 - 4 with MDM insert 28/48/42E. The head was impacted onto the femoral neck without difficulty. The final lesser trochanter to center of the femoral head measurement was satisfactory. The hip was reduced and taken through a range of motion. The hip was stable in all positions with good soft tissue tension and appropriate leg lengths. The hip was copiously irrigated with sterile saline. The previously tagged capsule and tendons were repaired to the posterolateral femur through two trochanteric drill holes. The proximal retracted torn abductor tendon was primarily repaired to the greater trochanter and posterior femur using multiple number 5 ethibonds. The lateral fascia layer was closed using number 1 vicryls. The rest of the incision was closed in a layered fashion using 0 and 2-0 vicryls. The skin was closed using 3-0 monocryl suture and Dermabond. Sterile adaptic, 4x4s and paper tape was used to cover the incision. The patients anesthesia was reversed without difficulty. She was taken to the PACU in stable condition. Intended weight-bearing will be as tolerated with posterior hip precautions.
[2019-07-02] MEDS: Atorvastatin* 10 MG TAB PO SCH (17:52)
[2019-07-02] MEDS: Insulin LISPRO* 1 UNITS UNIT SUBCUT SCH (17:52)
[2019-07-02] MEDS ORDERED: Ondansetron INJ* 2 MG/ML VIAL IV ONE (18:20)
[2019-07-02] MEDS ORDERED: Scopolamine 1.5 mg* PATCH TRANSDERM SCH (19:00)
[2019-07-02] MEDS ORDERED: Insulin GLARGINE(*) 1 UNITS UNIT SUBCUT SCH (21:00)
[2019-07-02] MEDS: Cyclobenzaprine TAB* 10 MG PO PRN (21:07)
[2019-07-02] MEDS: Docusate CAP* 100 MG PO SCH (22:59)
[2019-07-02] MEDS: Magnesium Hydroxide LIQ* 30 ML UDC PO SCH (22:59)
[2019-07-02] MEDS: oxyCODONE/Acetamin 5/325 MG* TAB PO PRN (23:00)
[2019-07-03] MEDS: ceFAZolin 1 GM ADVAN(*) 1 GM in NS 0.9% 50 ML* 50 ML IVPB SCH ×2 (00:33→08:06)
[2019-07-03] MEDS: Lactated Ringers 1000 ML Bag* 1,000 ML IV SCH (00:33)
[2019-07-03] MEDS: oxyCODONE TAB* 5 MG TAB PO PRN ×3 (03:44→22:29)
[2019-07-03 05:03] LABS: Hematocrit 33 % (35-47); Mean Platelet Volume 7.2 fL (7.4-10.4); Platelet Count 190 10^3/uL (150-450)
[2019-07-03 05:16] LABS: BUN/Creatinine Ratio 21.3 (8-20); Calcium 8.6 mg/dL (8.6-10.3); EGFR African American 76.3 (>60); EGFR Non-African American 63.1 (>60); Potassium 4.2 mmol/L (3.5-5.0)
[2019-07-03] MEDS: Cyclobenzaprine TAB* 10 MG PO PRN (06:20)
[2019-07-03] MEDS: Aspirin EC TAB* 325 MG PO SCH ×2 (08:01→21:45)
[2019-07-03] MEDS: Vitamin THERAPEUTIC TAB PO SCH (08:01)
[2019-07-03] MEDS: amLODIPine TAB* 5 MG PO SCH (08:02)
[2019-07-03] MEDS: Docusate CAP* 100 MG PO SCH ×2 (08:02→21:46)
[2019-07-03] MEDS: Ascorbic Acid TAB* 500 MG PO SCH (08:02)
[2019-07-03] MEDS: Pantoprazole TAB * 40 MG TAB PO SCH (08:02)
[2019-07-03] MEDS: Magnesium Hydroxide LIQ* 30 ML UDC PO SCH ×2 (08:03→21:46)
[2019-07-03] MEDS: oxyCODONE/Acetamin 5/325 MG* TAB PO PRN ×3 (08:15→20:11)
[2019-07-03] MEDS: Insulin LISPRO* 1 UNITS UNIT SUBCUT SCH ×3 (08:16→16:56)
[2019-07-03] MEDS ORDERED: Apixaban* 2.5 MG TAB PO SCH (09:00)
[2019-07-03] MEDS ORDERED: MULTIVITAMIN PO SCH (09:00)
--- NOTE | 2019-07-03 11:13 | PN ---
Progress Note - Progress Note Date of Service: 07/03/19 SOAP: Subjective: [Pt was seen this am sitting up in chair. States that she is doing well. Feels PT is moving slow. She denies any chest pain, SOB. She did have nausea today but feels that this has passed. ] Objective: [General: Pt is alert and oriented x3. NAD. MSK, LLE: Dressing is c/d/i. +df/pf. NVI distally. Calf soft and non tender. 2+ DP.] Vital Signs Temp 99.1 F 07/03/19 08:02 Pulse 108 07/03/19 08:02 Resp 18 07/03/19 08:17 BP 148/78 07/03/19 08:02 Pulse Ox 95 07/03/19 08:02 Intake & Output 07/02/19 07/03/19 07/03/19 18:59 06:59 18:59 Intake Total 2110 720 770 Output Total 1000 1200 100 Balance 1110 -480 670 Weight 222 lb 3.2 oz Intake: IV Fluids 1900 770 ABX - CEFAZOLIN 65 LR 1800 705 NS 100ML, Cefazolin 2G 100 Oral 210 720 Output: Urine 100 Anthony 850 1200 Estimated Blood Loss 150 Assessment: [POD 1 LTHA] Plan: [PT ASA 325 bid Oxycodone for pain Dressing change tomorrow Pt would like to go home tomorrow. ]
[2019-07-03] MEDS ORDERED: NS 0.9% 1000 ML** 1,000 ML IV ONE (14:43)
--- NOTE | 2019-07-03 18:00 | PN ---
Subjective Date of Service: 07/03/19 Interval History: Patient was seen sitting up in chair. As already discussed between patient and ortho, patient staying one more night due to pain and nausea which she states is already resolving. No acute complaints. Denies lightheadedness, chills, chest pain, palpitations, nausea, vomiting, abdominal pain, issues with bowel or bladder. Stated she will not have a BM until she goes home. Family History: Unchanged from Admission Social History: Unchanged from Admission Past Medical History: Unchanged from Admission Objective Active Medications: Acetaminophen (Tylenol Tab*) 650 mg PO Q8HR PRN PRN Reason: MILD PAIN or TEMP > 100.4 Amlodipine Besylate (Norvasc Tab*) 2.5 mg PO QAM [facility] Last Admin: 07/03/19 08:02 Dose: 2.5 mg Ascorbic Acid (Vitamin C Tab*) 1,000 mg PO QAM [facility] Last Admin: 07/03/19 08:02 Dose: 1,000 mg Aspirin (Ecotrin Ec Tab*) 325 mg PO BID [facility] Last Admin: 07/03/19 08:01 Dose: 325 mg Atorvastatin Calcium (Lipitor*) 10 mg PO QPM [facility] Last Admin: 07/02/19 17:52 Dose: 10 mg Bisacodyl (Dulcolax Supp*) 10 mg KS DAILY PRN PRN Reason: CONSTIPATION Cyclobenzaprine HCl (Flexeril Tab*) 10 mg PO Q6H PRN PRN Reason: SPASMS Last Admin: 07/03/19 06:20 Dose: 10 mg Dextrose (Dextrose 50% Vial 50 Ml*) 25 ml IV PUSH .FOR FS < 60 - SS PRN PRN Reason: FS < 60 Diphenhydramine HCl (Benadryl Iv*) 25 mg IV Q6H PRN PRN Reason: PRURITIS Diphenhydramine HCl (Benadryl Po*) 25 mg PO Q6H PRN PRN Reason: PRURITIS Docusate Sodium (Colace Cap*) 100 mg PO BID [facility] Last Admin: 07/03/19 08:02 Dose: 100 mg Lactated Ringer's (Lactated Ringers 1000 Ml Bag*) 1,000 mls @ 100 mls/hr IV PER RATE [facility] Last Admin: 07/03/19 00:33 Dose: 100 mls/hr Insulin Glargine (Lantus(*)) 30 units SUBCUT BEDTIME [facility] Insulin Human Lispro (Humalog*) 0 units SUBCUT AC [facility]; Protocol Last Admin: 07/03/19 16:56 Dose: Not Given Lactulose (Lactulose*) 30 ml PO BID PRN PRN Reason: CONSTIPATION Magnesium Hydroxide (Milk Of Magnesia Liq*) 30 ml PO BID [facility] Last Admin: 07/03/19 08:03 Dose: 30 ml Magnesium Hydroxide (Milk Of Magnesia Liq*) 30 ml PO Q6H PRN PRN Reason: CONSTIPATION Morphine Sulfate (Morphine Inj (Syringe))*) 2 mg IV Q4H PRN PRN Reason: Pain - Unrelieved Multivitamins (Theragran Tab*) 1 tab PO DAILY [facility] Last Admin: 07/03/19 08:01 Dose: 1 tab Ondansetron HCl (Zofran Inj*) 4 mg IV Q6H PRN PRN Reason: NAUSEA Last Admin: 07/02/19 13:54 Dose: 4 mg Ondansetron HCl (Zofran Odt Tab*) 4 mg PO Q6H PRN PRN Reason: NAUSEA Oxycodone HCl (Roxycodone Tab*) 10 mg PO Q4H PRN PRN Reason: Pain - Breakthrough Last Admin: 07/03/19 16:01 Dose: 10 mg Oxycodone/Acetaminophen (Percocet 5/325 Tab*) 1 tab PO Q4H PRN PRN Reason: PAIN - MODERATE Oxycodone/Acetaminophen (Percocet 5/325 Tab*) 2 tab PO Q4H PRN PRN Reason: PAIN - SEVERE Last Admin: 07/03/19 12:54 Dose: 2 tab Pantoprazole Sodium (Protonix Tab*) 40 mg PO QAM [facility] Last Admin: 07/03/19 08:02 Dose: 40 mg Pharmacy Profile Note (Scopolamine Patch Remove*) 1 note PATCH OFF ONCE ONE Stop: 07/05/19 19:01 Scopolamine (Transderm-Scop 1.5 Mg Patch*) 1 patch TRANSDERM Q72H [facility] Last Admin: 07/02/19 18:24 Dose: 1 patch Vital Signs - 8 hr 07/03/19 07/03/19 07/03/19 11:47 12:44 12:54 Temperature 98.2 F Pulse Rate 102 Respiratory 16 18 18 Rate Blood Pressure 136/68 (mmHg) O2 Sat by Pulse 93 Oximetry 07/03/19 07/03/19 07/03/19 15:53 16:00 16:01 Temperature Pulse Rate Respiratory 18 18 Rate Blood Pressure (mmHg) O2 Sat by Pulse 93 Oximetry 07/03/19 16:07 Temperature 99.1 F Pulse Rate 95 Respiratory 20 Rate Blood Pressure 121/63 (mmHg) O2 Sat by Pulse 94 Oximetry Oxygen Devices in Use Now: None Appearance: This is a well developed obese woman seen sittin gup in chair, no acute distress noted. Eyes: No Scleral Icterus, PERRLA Ears/Nose/Mouth/Throat: NL Teeth, Lips, Gums, Mucous Membranes Moist Neck: NL Appearance and Movements; NL JVP, Trachea Midline Respiratory: Symmetrical Chest Expansion and Respiratory Effort, Clear to Auscultation Cardiovascular: NL Sounds; No Murmurs; No JVD, RRR, No Edema Abdominal: NL Sounds; No Tenderness; No Distention Lymphatic: No Cervical Adenopathy Extremities: No Clubbing, Cyanosis, - - Mild left thigh edema. Result Diagrams: 07/03/19 04:43 07/03/19 04:43 Assess/Plan/Problems-Billing Assessment: This is a 69 year old female with a past medical history of OA, diabetes and HTN who was admitted 07/02/19 S/P left total hip replacement after failing conservative management. - Patient Problems (1) Status post total hip replacement, left Current Visit: Yes Status: Acute Code(s): Z96.642 - PRESENCE OF LEFT ARTIFICIAL HIP JOINT SNOMED Code(s): 453492720847 Comment: -PT/OT. -Pain and bowel management as per ortho. -Patient is not being discharged today due to pain control and nausea issues that are resolving. (2) Diabetes Current Visit: No Status: Acute Code(s): E11.9 - TYPE 2 DIABETES MELLITUS WITHOUT COMPLICATIONS SNOMED Code(s): 84383207 Comment: - Post op BG elevated between 190s to 200s today -Increased lantus from 25 to 30 units at bedtime. Continue sliding scale lispro and fingersticks AC. (3) HTN (hypertension) Current Visit: No Status: Acute Code(s): I10 - ESSENTIAL (PRIMARY) HYPERTENSION SNOMED Code(s): 83105171 Comment: -BP's 120s to 140s today. Continue amlodipine. Holding lisinopril and HCTZ for now. Recommend following up with primary care within one week of discharge. (4) HLD (hyperlipidemia) Current Visit: No Status: Acute Code(s): E78.5 - HYPERLIPIDEMIA, UNSPECIFIED SNOMED Code(s): 13313897 Comment: Continue atorvastatin (5) GERD (gastroesophageal reflux disease) Current Visit: No Status: Acute Code(s): K21.9 - GASTRO-ESOPHAGEAL REFLUX DISEASE WITHOUT ESOPHAGITIS SNOMED Code(s): 821696868 Comment: - Continue protonix, no symptoms of indigestion currently. (6) DVT prophylaxis Current Visit: No Status: Acute Code(s): QWS7571 - SNOMED Code(s): 080464963 Comment: - Aspirin BID per ortho (7) Full code status Current Visit: No Status: Acute Code(s): Z78.9 - OTHER SPECIFIED HEALTH STATUS SNOMED Code(s): 340388559 Status and Disposition: CONDITION: Fair DISPOSITION: Inpatient, likely discharge tomorrow in AM. Attending: Alexy Wolff
[2019-07-03] MEDS: Atorvastatin* 10 MG TAB PO SCH (18:03)
[2019-07-03] MEDS ORDERED: Insulin GLARGINE(*) 1 UNITS UNIT SUBCUT SCH (21:00)
[2019-07-04 05:51] LABS: Hematocrit 34 % (35-47); Hemoglobin 11.2 g/dL (12.0-16.0); Mean Platelet Volume 7.3 fL (7.4-10.4); Platelet Count 179 10^3/uL (150-450)
[2019-07-04] MEDS: oxyCODONE/Acetamin 5/325 MG* TAB PO PRN ×2 (07:01→12:09)
[2019-07-04] MEDS: Docusate CAP* 100 MG PO SCH (08:06)
[2019-07-04] MEDS: Magnesium Hydroxide LIQ* 30 ML UDC PO SCH (08:06)
[2019-07-04] MEDS: Ascorbic Acid TAB* 500 MG PO SCH (08:07)
[2019-07-04] MEDS: Vitamin THERAPEUTIC TAB PO SCH (08:07)
[2019-07-04] MEDS: Aspirin EC TAB* 325 MG PO SCH (08:07)
[2019-07-04] MEDS: amLODIPine TAB* 5 MG PO SCH (08:08)
[2019-07-04] MEDS: Pantoprazole TAB * 40 MG TAB PO SCH (08:08)
[2019-07-04] MEDS: Insulin LISPRO* 1 UNITS UNIT SUBCUT SCH ×2 (08:10→12:10)
--- NOTE | 2019-07-04 08:12 | PN ---
Progress Note - Progress Note Date of Service: 07/04/19 SOAP: Subjective: POD #2 Left JESÚS, doing well. Pain controlled. Nausea improved. Denies CP/SOB, f/ c, or calf pain. Objective: Vital Signs: Temp Pulse Resp BP Pulse Ox 98.6 F 100 18 133/69 93 07/04/19 07:44 07/04/19 07:44 07/04/19 07:44 07/04/19 07:44 07/04/19 07:44 Gen: A&O x3, NAD at rest sitting in chair Left Hip: Incision C/D/I. No erythema or ecchymosis. Thigh soft, NT. +f/e at ankle and MTPs. N/V intact Labs: Laboratory Results - last 24 hr 07/03/19 07/03/19 07/03/19 08:01 12:12 16:52 Hgb Hct Plt Count MPV POC Glucose (mg/dL) 192 H 255 H 110 H 07/03/19 07/03/19 07/04/19 20:43 21:29 05:41 Hgb 11.2 L Hct 34 L Plt Count 179 MPV 7.3 L POC Glucose (mg/dL) 383 H 356 H 07/04/19 07:12 Hgb Hct Plt Count MPV POC Glucose (mg/dL) 231 H Assessment: POD #2 Left JESÚS, doing well Plan: D/C home today ASA 325mg BID for DVT ppx Percocet for pain control F/u wit Dr. Cabello 10-14 days post op
--- NOTE | 2019-07-04 08:16 | DS ---
Orthopedic Discharge Summary - Discharge Summary Date of Admission:07/02/19 Date of Discharge: 07/04/18 Date of Surgery: 07/02/19 Attending Orthopedic Provider: Aby Cabello MD Pre-operative Diagnosis: Left hip osteoarthritis Operative Procedure: Left total hip arthroplasty Disposition of Patient: Home Condition of Patient: Stable History: MARK MOON is a 69 year old F with years of increasingly severe left hip pain. Patient has failed conservative management and has elected to undergo a left total hip replacement Hospital Course: MARK was admitted to [facility] on 07/02/19. Patient underwent a left total hip arthroplasty without complication followed by a brief recovery in PACU and transfer to the Short Stay Surgical Unit in stable condition. Our hospitalist service, physical therapy and occupational therapy also participated in this patients care. Post-op day 1: patient was alert and in no acute distress. She had some difficulty with nausea and pain control. Dressing was clean, dry and intact. Operative extremity dorsiflexion and plantarflexion intact, sensation intact to light touch distally, DP2+. Post- op day two: Pain was more manageable and nausea had resolved. Dressing was changed, incision was clean, dry and intact. Patient was deemed to be medically and orthopedically stable for discharge. Physical therapy goals were met. Home Medications Medication Instructions Recorded Confirmed Type Lisinopril/Hydrochlorothiazide 1 tab PO QAM 01/11/14 07/02/19 History [Lisinopril-Hctz 20-12.5 mg Tab] Multivitamin 1 tab PO QAM 01/11/14 07/02/19 History Ascorbic Acid TAB* [Vitamin C 1,000 mg PO QAM 06/22/16 07/02/19 History TAB*] Ibuprofen TAB* [Advil TAB*] 800 mg PO BID PRN 11/19/16 07/02/19 History Amlodipine Besylate [Amlodipine 2.5 mg PO QAM 12/28/16 07/02/19 History 2.5 mg tab] Glimepiride 1 tab PO QAM 05/16/18 07/02/19 History Glimepiride 4 mg PO QPM 05/16/18 07/02/19 History Insulin Glargine,Hum.rec.anlog 50 units SUBCUT BEDTIME 05/16/18 07/02/19 History [Lantus Solostar 5x3 ML PENS] Insulin Lispro Protamin/Lispro 30 unit SQ QAM 05/16/18 07/02/19 History [Humalog Mix 75-25 Kwikpen] Omeprazole 20 mg PO QAM 05/16/18 07/02/19 History Simvastatin 20 mg PO QPM 05/16/18 07/02/19 History Aspirin EC TAB* [Ecotrin EC TAB*] 325 mg PO BID tab.ec 07/04/19 Rx Docusate CAP* [Colace Cap*] 100 mg PO BID cap 07/04/19 Rx oxyCODONE/Acetamin 5/325 MG* 1 tab PO Q4H PRN tab 07/04/19 Rx [Percocet 5/325 TAB*] oxyCODONE/Acetamin 5/325 MG* 2 tab PO Q4H PRN tab 07/04/19 Rx [Percocet 5/325 TAB*] Discharge Instructions following Orthopedic Surgery: Activity: * Weight Bearing as tolerated * Continue physical therapy and occupational therapy exercises as shown Hip replacements: Continue Hip Precautions- do not cross legs or bend greater than 90 degrees/squat Wound care: * OK to shower on post-op day 3, no bathing, swimming, or submerging wound. * Use gentle soap, pat dry. Cover with gauze, CHARLES wrap or tape. Call Orthopedic office for: * Increased drainage * Redness * Increased pain * Fever Go to ER with shortness of breath or chest pain. Diet: * Regular diet * Increase fluids and fiber to prevent constipation. * Continue to use stool softeners, call office if no bowel motion within 48 hours. Medications See Home Medication List in your packet for medications that you should take after discharge. DVT Prophylaxis: Aspirin Dosin mg twice a day Pain Control: Percocet Dosin/325 mg 1-2 tabs by mouth every 4-6 hours as needed for pain. Maximum of 10 tabs per day. Please note that Percocet contains Tylenol (acetaminophen). Maximum daily dose of Tylenol is 4000 mg from all sources. Antibiotics are required prior to any dental work. FOLLOW UP: Follow up with Dr. Cabello Within 10-14 days, call for appointment Please call our office with any questions or concerns ([phone])
[2019-07-04] MEDS ORDERED: Bisacodyl SUPP* 10 MG SUPP PR PRN (10:45)
[2019-07-04 11:39] VITALS: BP 123/64
[2019-07-05] MEDS ORDERED: Scopolamine PATCH Remove* 1 NOTE MISC PATCH OFF ONE ×2 (06:03→19:00)
== END 2019-07-04 12:10 | disposition home or self-care (01) ==
LOC: OR 06:05 → EDSTATUS 07:45 → SSU 10:45
PROVIDERS: ADMIT Orthopaedic Surgery Adult Reconstructive Orthopaedic Surgery; ATTEND Orthopaedic Surgery Adult Reconstructive Orthopaedic Surgery
DX: M16.12 Unilateral primary osteoarthritis, left hip (principal); M25.552 Pain in left hip; I10 Essential (primary) hypertension; E78.00 Pure hypercholesterolemia, unspecified; E11.9 Type 2 diabetes mellitus without complications; K21.9 Gastro-esophageal reflux disease without esophagitis; Z79.899 Other long term (current) drug therapy; Z79.82 Long term (current) use of aspirin
CPT/HCPCS: 36415; 72170; 80048; 85014; 85018; 85049; 88304; 88311; 93005; 96365; 96367; 96375; 96376; A9270-GY; C1713; C1776; G0378; G8978-GP-CK; G8979-GP-CJ; J0690; J0780; J1170; J1240; J2250; J2405; J2704; J3010; J3490